=== PATIENT | male | born 1930 | race Caucasian/White ===

== ENCOUNTER 2017-12-31 21:19 | Inpatient (IN) | payer OTHER, MEDICARE ==
--- NOTE | 2017-12-31 22:17 | PDOC ---
History of Present Illness - General Chief Complaint: Injury Stated Complaint: FALL Time Seen by Provider: 12/31/17 21:29 History Source: Patient Exam Limitations: No Limitations - History of Present Illness Initial Comments: 12/31/17 22:17 87m with pmh of aortic valve replacement on clopidogrel in addition to arteriosclerotic heart disease, AL S/P CABG, PCI/stenting, angina pectoris, HTN/ HCVD, hypercholesterolemia, carotid stenosis (moderate in severity), history of vocal cord malignancy post intervention, CKD with mildly elevated creatinine, diabetic peripheral neuropathy, degenerative joint disease and chronic anemia presents to the ED after feeling of generalized weakness and fall with feeling too weak to get back up on his own. 12/31/17 22:17 Past History - Past Medical History Allergies/Adverse Reactions: Allergies Allergy/AdvReac Type Severity Reaction Status Date / Time shrimp Allergy Verified 12/31/17 21:44 walnut Allergy Verified 12/31/17 21:44 SHRHIMP AdvReac Rash Uncoded 12/31/17 21:44 WALNUTS AdvReac Hives Uncoded 12/31/17 21:44 Home Medications: Ambulatory Orders Amlodipine Besylate 5 mg PO DAILY 12/31/17 Aspirin [ASA -] 81 mg PO DAILY 12/31/17 Clopidogrel Bisulfate [Clopidogrel] 75 mg PO DAILY 12/31/17 Furosemide 20 mg PO BID 12/31/17 Glimepiride 1 mg PO BID 12/31/17 Linagliptin [Tradjenta] 5 mg PO DAILY 12/31/17 Losartan Potassium 100 mg PO DAILY 12/31/17 Metoprolol Tartrate 50 mg PO DAILY 12/31/17 [place]-3 Fatty Acids [[place]-3] 1,000 mg PO DAILY 12/31/17 Rosuvastatin Calcium [Crestor] 2.5 mg PO DAILY 12/31/17 Oseltamivir Phosphate [Tamiflu] 75 mg PO BID #10 capsule 01/01/18 Cardiac Disorders: Yes (BYPASS 2004) Diabetes: Yes HTN: Yes Hypercholesterolemia: Yes - Surgical History Cardiac Surgery: Yes (QUADRUPLE BYPASS) Cholecystectomy: Yes - Suicide/Smoking/Psychosocial Hx Smoking Status: Yes Smoking History: Never smoked Have you smoked in the past 12 months: No Number of Cigarettes Smoked Daily: 0 Information on smoking cessation initiated: No Hx Alcohol Use: No Drug/Substance Use Hx: No Substance Use Type: None Review of Systems - Review of Systems Able to Perform ROS?: Yes Is the patient limited Icelandic proficient: No Constitutional: Yes: Weakness HEENTM: No: Symptoms Reported Respiratory: No: Symptoms reported Cardiac (ROS): No: Symptoms Reported ABD/GI: No: Symptoms Reported : No: Symptoms Reported Musculoskeletal: No: Symptoms Reported Integumentary: No: Symptoms Reported Neurological: No: Symptoms reported All Other Systems: Reviewed and Negative *Physical Exam - Vital Signs Last Vital Signs Temp Pulse Resp BP Pulse Ox 99.2 F 81 14 118/70 96 12/31/17 21:45 12/31/17 21:45 12/31/17 21:45 12/31/17 21:45 12/31/17 21:45 - Physical Exam General Appearance: Yes: Nourished, Appropriately Dressed, Apparent Distress HEENT: positive: EOMI, MARTHA, Normal ENT Inspection Respiratory/Chest: positive: Lungs Clear, Normal Breath Sounds. negative: Chest Tender, Respiratory Distress Cardiovascular: positive: Regular Rhythm, Regular Rate, S1, S2 Gastrointestinal/Abdominal: positive: Normal Bowel Sounds, Flat, Soft. negative : Tender Extremity: positive: Normal Capillary Refill, Normal Inspection, Normal Range of Motion Integumentary: positive: Normal Color, Dry, Warm Neurologic: positive: Fully Oriented, Alert, Normal Mood/Affect, Normal Response ED Treatment Course - LABORATORY CBC & Chemistry Diagram: 12/31/17 22:43 12/31/17 22:43 - RADIOLOGY Radiology Studies Ordered: Category Date Time Status HEAD CT WITHOUT CONTRAST [CT] Stat CT Scan 12/31/17 21:47 Ordered CHEST X-RAY PORTABLE* [RAD] Stat Radiology 12/31/17 21:50 Ordered Medical Decision Making - Medical Decision Making 12/31/17 22:31 Will check for source of fever. UTI vs pneumonia vs flu vs metabolic Head ct pending. , negative EKG: RBBB unchanged from last. BnP elevated. Patient to be admitted for syncope and treated empirically for the Flu. *DC/Admit/Observation/Transfer Diagnosis at time of Disposition: Syncope, Weakness - Discharge Dispostion Admit: Yes - Prescriptions - Referrals - Patient Instructions - Post Discharge Activity
[2017-12-31 22:59] LABS: URINE APPEARANCE CLEAR; URINE BILIRUBIN NEGATIVE (NEGATIVE); URINE BLOOD NEGATIVE (NEGATIVE); URINE COLOR LTYELLOW; URINE GLUCOSE (UA) NEGATIVE (NEGATIVE); URINE KETONE NEGATIVE (NEGATIVE); URINE LEUK ESTERASE NEGATIVE (NEGATIVE); URINE NITRITE NEGATIVE (NEGATIVE); URINE UROBILINOGEN NEGATIVE mg/dL (0.2-1.0)
[2017-12-31 23:05] LABS: EPI CELLS RARE /HPF (FEW); URINE MUCUS RARE; URINE PROTEIN 2+ (NEGATIVE)
[2017-12-31 23:05] LABS: BASO % 0.4 % (0-2.0); EOS % 0.1 % (0-4.5); HEMATOCRIT 38.5 % (35.4-49); HEMOGLOBIN 12.9 GM/dL (11.7-16.9); LYMPH % 4.1 % (8-40); MCH 29.2 pg (25.7-33.7); MCHC 33.6 g/dl (32.0-35.9); MEAN PLT VOLUME 8.3 fl (7.5-11.1); MONO % 7.1 % (3.8-10.2); NEUT % 88.3 % (42.8-82.8); PLATELET COUNT 147 K/MM3 (134-434); RBC 4.43 M/mm3 (4.00-5.60); RDW 12.9 % (11.9-15.9); WHITE BLOOD COUNT 10.3 K/mm3 (4.0-10.0)
[2017-12-31] MEDS ORDERED: SODIUM CHLORIDE 1,000 ML IV STA (23:09)
[2017-12-31 23:12] LABS: INR 1.08 (0.82-1.09); PROTHROMBIN TIME (PATIENT) 12.2 SEC (9.98-11.88)
[2017-12-31 23:32] LABS: ALBUMIN 3.8 g/dl (3.4-5.0); ANION GAP 8 (8-16); BILIRUBIN,TOTAL 0.7 mg/dL (0.2-1.0); BLOOD UREA NITROGEN 28 mg/dL (7-18); CALCIUM 9.1 mg/dL (8.5-10.1); CHLORIDE 98 mmol/L (98-107); CO2 30 mmol/L (21-32); CREATININE 1.7 mg/dL (0.7-1.3); GLUCOSE,RANDOM 128 mg/dL (74-106); POTASSIUM 4.1 mmol/L (3.5-5.1); SGOT/AST 29 U/L (15-37); SGPT/ALT 26 U/L (12-78); SODIUM 136 mmol/L (136-145); TOT PROT 8.9 g/dl (6.4-8.2)
[2017-12-31 23:42] LABS: ALK PHOS 67 U/L (45-117)
[2017-12-31] MEDS ORDERED: ACETAMINOPHEN 1000 MG/100 ML VIAL (NON FORMULARY) IVPB ONE (23:49)
[2017-12-31] MEDS ORDERED: ACETAMINOPHEN INJECTION 100 ML IVPB ONE (23:49)
[2018-01-01] MEDS ORDERED: OSELTAMIVIR PHOSPHATE 75 MG CAPSULE PO ONE (01:17)
--- NOTE | 2018-01-01 01:20 | PDOC ---
Attending Attestation - Resident Resident Name: Gregory Shannon - ED Attending Attestation I have performed the following: I have examined & evaluated the patient, The case was reviewed & discussed with the resident, I agree w/resident's findings & plan - HPI HPI: 01/01/18 01:18 Pt comes with syncope which was unwitnessed at home. Pt leaned over to clean up cat's vomit and he ended up on the ground, - Physicial Exam PE: 01/01/18 01:19 Exam is normal; Pt is A+Ox3. Pt has a low grade fever. 01/01/18 01:19 - Medical Decision Making 01/01/18 01:20 Labs are normal. WBC slight elevation 01/01/18 02:17 Patient Name: NOY COPPOLA THIS IS A PRELIMINARY REPORT FROM [facility] DATE OF SERVICE: 2018-01-01 00:52:04 IMAGES: 151 EXAM: HEAD CT WITHOUT CONTRAST HISTORY: Trauma TECHNIQUE: CT Head with serial axial images extending from the vertex to the base of skull was performed without vascular contrast. FINDINGS: Brain parenchyma is normal in attenuation with no mass or hematoma. There is no midline shift. Arceo and white matter differentiation is normal. There is some lucency in the periventricular white matter Ventricles are mildly prominent. Sulci and extra-axial CSF spaces are mildly prominent. Intracranial vascular structures are normal in attenuation. There is no calvarial fracture. Paranasal sinuses are normally aerated. IMPRESSION: No intracranial mass or bleed Chronic appearing involutional changes of aging THIS DOCUMENT HAS BEEN ELECTRONICALLY SIGNED 01/01/18 03:09 Pt will be admitted as he has bilateral crackles at the lung bases, as he is weak and cannot ambulate and carry his weight and move about, as he has fever and as he had an unwitnessed syncope in his home.
[2018-01-01] MEDS ORDERED: OSELTAMIVIR PHOSPHATE 75 MG CAPSULE ONE (02:12)
[2018-01-01 02:24] LABS: N-TERMINAL BNP 1348.85 pg/ml (5-450)
[2018-01-01] MEDS ORDERED: IBUPROFEN 600 MG TABLET (FP) PO ONE ×2 (03:08→06:07)
--- NOTE | 2018-01-01 04:05 | HP ---
CHIEF COMPLAINT: fall PCP: Dr. Mejia HISTORY OF PRESENT ILLNESS: 87 year old male with a history of AV replacement recently, ME, HTN, HLD, carotid stenosis, CKD, DM, vocal chord malignancy, anemia, presents to the ED for a fall. He states that this morning around 11am, he got a fever he measured to be 102 with body aches. Later in the day he reports that his cat had non- bloody, non-bilious emesis which he had to clean up after. When he stood up after cleaning up his cat's vomit, patient states that he felt lightheaded and fell. He states that he may have hit his head but he doesn't really remember whether he hit it. Currently patient endorses fevers and chills, weakness. Denies shortness of breath, chest pain, nausea, vomiting, diarrhea, abdominal pain, headache, or light headedness. Denies cough or sputum production. Denies dysuria. ER course was notable for: (1) WBC 10.3 (2) Cre 1.7 (baseline) (3) Tmax 100.8 Recent Travel: none PAST MEDICAL HISTORY: AV replacement recently, ME, HTN, HLD, carotid stenosis, CKD, DM, vocal chord malignancy, anemia PAST SURGICAL HISTORY: av replacement Social History: Smoking: none Alcohol: none Drugs: none Family History: Allergies shrimp Allergy (Verified 12/31/17 21:44) walnut Allergy (Verified 12/31/17 21:44) SHRHIMP Adverse Reaction (Uncoded 12/31/17 21:44) Rash WALNUTS Adverse Reaction (Uncoded 12/31/17 21:44) Hives HOME MEDICATIONS: Home Medications Medication Instructions Recorded Amlodipine Besylate 5 mg PO DAILY 12/31/17 Aspirin [ASA -] 81 mg PO DAILY 12/31/17 Clopidogrel Bisulfate [Clopidogrel] 75 mg PO DAILY 12/31/17 Furosemide 20 mg PO BID 12/31/17 Glimepiride 1 mg PO BID 12/31/17 Linagliptin [Tradjenta] 5 mg PO DAILY 12/31/17 Losartan Potassium 100 mg PO DAILY 12/31/17 Metoprolol Tartrate 50 mg PO DAILY 12/31/17 [place]-3 Fatty Acids [[place]-3] 1,000 mg PO DAILY 12/31/17 Rosuvastatin Calcium [Crestor] 2.5 mg PO DAILY 12/31/17 Oseltamivir Phosphate [Tamiflu] 75 mg PO BID #10 capsule 01/01/18 REVIEW OF SYSTEMS CONSTITUTIONAL: fever, chills, generalized weakness Absent: diaphoresis, , malaise, loss of appetite, weight change HEENT: Absent: rhinorrhea, nasal congestion, throat pain, throat swelling, difficulty swallowing, mouth swelling, ear pain, eye pain, visual changes CARDIOVASCULAR: syncope, Absent: chest pain, palpitations, irregular heart rate, lightheadedness, peripheral edema RESPIRATORY: Absent: cough, shortness of breath, dyspnea with exertion, orthopnea, wheezing, stridor, hemoptysis GASTROINTESTINAL: Absent: abdominal pain, abdominal distension, nausea, vomiting, diarrhea, constipation, melena, hematochezia GENITOURINARY: Absent: dysuria, frequency, urgency, hesitancy, hematuria, flank pain, genital pain MUSCULOSKELETAL: Absent: myalgia, arthralgia, joint swelling, back pain, neck pain SKIN: Absent: rash, itching, pallor HEMATOLOGIC/IMMUNOLOGIC: Absent: easy bleeding, easy bruising, lymphadenopathy, frequent infections ENDOCRINE: Absent: unexplained weight gain, unexplained weight loss, heat intolerance, cold intolerance NEUROLOGIC: Absent: headache, focal weakness or paresthesias, dizziness, unsteady gait, seizure, mental status changes, bladder or bowel incontinence PSYCHIATRIC: Absent: anxiety, depression, suicidal or homicidal ideation, hallucinations. PHYSICAL EXAMINATION Vital Signs - 24 hr 12/31/17 12/31/17 01/01/18 21:45 23:45 02:17 Temperature 99.2 F 100.8 F H 98.2 F Pulse Rate 81 Respiratory 14 Rate Blood Pressure 118/70 O2 Sat by Pulse 96 Oximetry (%) GENERAL: Awake, alert, and fully oriented, in no acute distress. patient is visibly shivering and covering himself with blankets. HEAD: Normal with no signs of trauma. EYES: Pupils equal, round and reactive to light, extraocular movements intact, sclera anicteric, conjunctiva clear. No lid lag. EARS, NOSE, THROAT: Ears normal, nares patent, oropharynx clear without exudates. Moist mucous membranes. NECK: Normal range of motion, supple without lymphadenopathy, JVD, or masses. LUNGS: Breath sounds equal, clear to auscultation bilaterally. bilateral crackles appreciated on exam at the lung bases HEART: Regular rate and rhythm, normal S1 and S2 without murmur, rub or gallop. ABDOMEN: Soft, nontender, not distended, normoactive bowel sounds, no guarding, no rebound, no masses. No hepatomegaly or splenomegaly. MUSCULOSKELETAL: Normal range of motion at all joints. No bony deformities or tenderness. No CVA tenderness. UPPER EXTREMITIES: 2+ pulses, warm, well-perfused. No cyanosis. No clubbing. No peripheral edema. LOWER EXTREMITIES: 2+ pulses, warm, well-perfused. No calf tenderness. No peripheral edema. B/L lower extremity discoloration noted on exam, more like chronic venous stasis changes NEUROLOGICAL: Cranial nerves II-XII intact. Normal speech. Normal gait. PSYCHIATRIC: Cooperative. Good eye contact. Appropriate mood and affect. SKIN: Warm, dry, normal turgor, no rashes or lesions noted, normal capillary refill. Laboratory Results - last 24 hr 12/31/17 12/31/17 12/31/17 22:43 22:43 22:43 WBC 10.3 H D RBC 4.43 Hgb 12.9 Hct 38.5 MCV 87.0 MCH 29.2 MCHC 33.6 RDW 12.9 Plt Count 147 MPV 8.3 Neutrophils % 88.3 H D Lymphocytes % 4.1 L D Monocytes % 7.1 Eosinophils % 0.1 D Basophils % 0.4 PT with INR 12.20 H INR 1.08 PTT (Actin FS) 33.0 Sodium 136 Potassium 4.1 Chloride 98 Carbon Dioxide 30 Anion Gap 8 BUN 28 H Creatinine 1.7 H Creat Clearance w eGFR 38.14 Random Glucose 128 H Lactic Acid Calcium 9.1 Total Bilirubin 0.7 D AST 29 D ALT 26 Alkaline Phosphatase 67 Creatine Kinase 175 Creatine Kinase Index 0.5 CK-MB (CK-2) < 1.000 Troponin I 0.02 D B-Natriuretic Peptide Total Protein 8.9 H Albumin 3.8 Urine Color Urine Appearance Urine pH Ur Specific [place] Urine Protein Urine Glucose (UA) Urine Ketones Urine Blood Urine Nitrite Urine Bilirubin Urine Urobilinogen Ur Leukocyte Esterase Urine WBC (Auto) Urine RBC (Auto) Ur Epithelial Cells Urine Mucus 12/31/17 12/31/17 12/31/17 22:43 22:43 22:55 WBC RBC Hgb Hct MCV MCH MCHC RDW Plt Count MPV Neutrophils % Lymphocytes % Monocytes % Eosinophils % Basophils % PT with INR INR PTT (Actin FS) Sodium Potassium Chloride Carbon Dioxide Anion Gap BUN Creatinine Creat Clearance w eGFR Random Glucose Lactic Acid Calcium Total Bilirubin AST ALT Alkaline Phosphatase Creatine Kinase Cancelled Creatine Kinase Index CK-MB (CK-2) Troponin I Cancelled B-Natriuretic Peptide Total Protein Albumin Urine Color Ltyellow Urine Appearance Clear Urine pH 6.0 Ur Specific [place] 1.012 Urine Protein 2+ H Urine Glucose (UA) Negative Urine Ketones Negative Urine Blood Negative Urine Nitrite Negative Urine Bilirubin Negative Urine Urobilinogen Negative Ur Leukocyte Esterase Negative Urine WBC (Auto) <1 Urine RBC (Auto) <1 Ur Epithelial Cells Rare Urine Mucus Rare 12/31/17 01/01/18 01/01/18 23:00 01:40 01:41 WBC RBC Hgb Hct MCV MCH MCHC RDW Plt Count MPV Neutrophils % Lymphocytes % Monocytes % Eosinophils % Basophils % PT with INR INR PTT (Actin FS) Sodium Potassium Chloride Carbon Dioxide Anion Gap BUN Creatinine Creat Clearance w eGFR Random Glucose Lactic Acid 1.7 Calcium Total Bilirubin AST ALT Alkaline Phosphatase Creatine Kinase 171 Creatine Kinase Index 0.7 CK-MB (CK-2) 1.260 Troponin I 0.02 B-Natriuretic Peptide Cancelled 1348.85 H Total Protein Albumin Urine Color Urine Appearance Urine pH Ur Specific [place] Urine Protein Urine Glucose (UA) Urine Ketones Urine Blood Urine Nitrite Urine Bilirubin Urine Urobilinogen Ur Leukocyte Esterase Urine WBC (Auto) Urine RBC (Auto) Ur Epithelial Cells Urine Mucus Home Medication List Medication Instructions Recorded Confirmed Type Amlodipine Besylate 5 mg PO DAILY 12/31/17 12/31/17 History Aspirin [ASA -] 81 mg PO DAILY 12/31/17 12/31/17 History Clopidogrel Bisulfate [Clopidogrel] 75 mg PO DAILY 12/31/17 12/31/17 History Furosemide 20 mg PO BID 12/31/17 12/31/17 History Glimepiride 1 mg PO BID 12/31/17 12/31/17 History Linagliptin [Tradjenta] 5 mg PO DAILY 12/31/17 12/31/17 History Losartan Potassium 100 mg PO DAILY 12/31/17 12/31/17 History Metoprolol Tartrate 50 mg PO DAILY 12/31/17 12/31/17 History [place]-3 Fatty Acids [[place]-3] 1,000 mg PO DAILY 12/31/17 12/31/17 History Rosuvastatin Calcium [Crestor] 2.5 mg PO DAILY 12/31/17 12/31/17 History Active Medications Generic Name Dose Route Start Last Admin Trade Name Heather PRN Reason Stop Dose Admin Amlodipine Besylate 5 mg 01/01/18 10:00 Norvasc - PO DAILY [facility] Aspirin 81 mg 01/01/18 10:00 Asa - PO DAILY [facility] Azithromycin 500 mg 01/01/18 10:00 Zithromax - PO DAILY [facility] Clopidogrel Bisulfate 75 mg 01/01/18 10:00 Plavix - PO DAILY [facility] Furosemide 20 mg 01/01/18 10:00 Lasix - PO BID [facility] Heparin Sodium (Porcine) 5,000 unit 01/01/18 05:15 Heparin - SQ Q8H-IV [facility] Ceftriaxone Sodium 1 gm/ 50 mls @ 100 mls/hr 01/01/18 10:00 Dextrose IVPB DAILY [facility] Insulin Aspart 0 vial 01/01/18 07:00 Novolog Vial Sliding Scale - SQ ACHS [facility] Protocol Metoprolol Tartrate 50 mg 01/01/18 10:00 Lopressor - PO DAILY [facility] Non-Formulary Medication 100 mg 01/01/18 10:00 Losartan Potassium [Losartan Potassium] PO DAILY [facility] Oseltamivir Phosphate 75 mg 01/01/18 10:00 Tamiflu - PO 01/06/18 09:59 BID [facility] Rosuvastatin Calcium 2.5 mg 01/01/18 10:00 Crestor - PO DAILY [facility] ASSESSMENT/PLAN: 87 year old male with a history of AV replacement recently, ME, HTN, HLD, carotid stenosis, CKD, DM, vocal chord malignancy, anemia, is admitted to the hospital s/p fall with possible syncopal episode and fevers/chills with crackles on exam suggestive of pneumonia and influenza #Respiratory Infection: likely 2/2 infuenza vs pneumonia -RV panel to r/o flu -blood cultures -urine cultures -urine legionella -tamiflu given -ceftriaxone 1g QD -zithromax 500 QD #Syncope: unclear if truly syncopized -telemetry -lipid panel -echo -carotid duplex - consult appreciated -Dr. Mejia consult appreciated #ME: stable -continue ASA, plavix #HTN: stable -amlodipine, losartan, lasix, lopressor -monitor BP in AM #DM: stable -bgms -ISS #CKD: patient is at baseline -can give lasix #FEN -No standing fluids, encourage PO intake -electrolytes within normal limits, Cre at baseline -diabetic diet #Prophylaxis -heparin 5000 subq TID #Disposition -admit to telemetry for syncopy workup Visit type - Emergency Visit Emergency Visit: Yes ED Registration Date: 01/01/18 Care time: The patient presented to the Emergency Department on the above date and was hospitalized for further evaluation of their emergent condition. - New Patient This patient is new to me today: Yes Date on this admission: 01/01/18 - Critical Care Critical Care patient: No
[2018-01-01] MEDS ORDERED: HEPARIN NA (PORCINE) 5,000 UNITS/ML 1ML VIAL SQ SCH (05:15)
--- NOTE | 2018-01-01 05:52 | PN ---
Teaching Attending Note Name of Resident: Westley Monahan ATTENDING PHYSICIAN STATEMENT I saw and evaluated the patient. Chart, data, imaging. I reviewed the resident's note and discussed the case with the resident. I agree with the resident's findings and plan as documented. SUBJECTIVE: 87m with AVR on clopidogrel, CAD S/P CABG, PCI/stenting, angina pectoris, HTN, DLP, carotid stenosis, vocal cord malignancy post intervention, CKD, c/o chills fevers, muscle aches for about one day. He mentioned that his daughter in law was recently sick. No mentioned recent travels. Pt also with questionable syncope episode on 12/31. Unwitnessed. He denied any trauma to head. OBJECTIVE: Last Vital Signs Temp Pulse Resp BP Pulse Ox 98.2 F 81 14 118/70 96 01/01/18 02:17 12/31/17 21:45 12/31/17 21:45 12/31/17 21:45 12/31/17 21:45 General- nad, aaox3 heent - at, nc neck- supple chest- bibasilar crackles appreciated on lung auscultation abdomen - soft, nt ext- chronic venous stasis Abnormal Lab Results 12/31/17 12/31/17 12/31/17 22:43 22:43 22:43 WBC 10.3 H D Neutrophils % 88.3 H D Lymphocytes % 4.1 L D PT with INR 12.20 H BUN 28 H Creatinine 1.7 H Random Glucose 128 H B-Natriuretic Peptide Total Protein 8.9 H Urine Protein 12/31/17 01/01/18 22:55 01:41 WBC Neutrophils % Lymphocytes % PT with INR BUN Creatinine Random Glucose B-Natriuretic Peptide 1348.85 H Total Protein Urine Protein 2+ H CXR -showed bibasilar infiltrates CT of head-no acute bleeds or lesions EKG- old right bundle branch block ASSESSMENT AND PLAN: #Probable upper viral respiratory infection with superimposed pneumonia as evidence by fever and bibasilar infiltrates on CXR. Should r/o influenza. -Respiratory multiplex PCR -blood cultures x2 -sputum culture -legionella urine ag -ceftriaxone 1g IV q24hrs -azithromycin 500mg PO daily -Tamiflu 30mg PO bid (adjusted for CKD) #Syncope episode -uncertain. Head CT wnl. EKG with no acute changes -admit to telemetry -TSH -transthoracic echo -carotid duplex studies b/l #DVT ppx -heparin sc
[2018-01-01] MEDS ORDERED: HEPARIN NA (PORCINE) 5,000 UNITS/ML 1ML VIAL ONE (06:05)
[2018-01-01] MEDS ORDERED: HEMOQUE TEST 1 EACH EACH ONE (07:47)
[2018-01-01] MEDS: INSULIN SLIDING SCALE (NOVOLOG) 1 VIAL SQ SCH ×4 (07:53→23:17)
[2018-01-01] MEDS ORDERED: INSULIN REGULAR HUMAN 100 UNITS/ML *VIAL ONE ×2 (08:07→12:06)
[2018-01-01 08:56] LABS: BASO % 0.4 % (0-2.0); HEMATOCRIT 35.9 % (35.4-49); HEMOGLOBIN 11.9 GM/dL (11.7-16.9); LYMPH % 2.9 % (8-40); MCH 28.7 pg (25.7-33.7); MCHC 33.2 g/dl (32.0-35.9); MEAN CELL VOLUME 86.5 fl (80-96); MEAN PLT VOLUME 8.4 fl (7.5-11.1); MONO % 7.1 % (3.8-10.2); NEUT % 89.6 % (42.8-82.8); PLATELET COUNT 138 K/MM3 (134-434); RBC 4.15 M/mm3 (4.00-5.60); RDW 13.1 % (11.9-15.9); WHITE BLOOD COUNT 10.2 K/mm3 (4.0-10.0)
[2018-01-01 09:13] LABS: ALBUMIN 3.5 g/dl (3.4-5.0); ANION GAP 9 (8-16); BLOOD UREA NITROGEN 26 mg/dL (7-18); CALCIUM 8.1 mg/dL (8.5-10.1); CHLORIDE 100 mmol/L (98-107); CO2 27 mmol/L (21-32); GLUCOSE,RANDOM 160 mg/dL (74-106); MAGNESIUM 2.2 mg/dL (1.8-2.4); POTASSIUM 4.1 mmol/L (3.5-5.1); SODIUM 136 mmol/L (136-145)
[2018-01-01 09:18] LABS: ALK PHOS 59 U/L (45-117); BILIRUBIN,TOTAL 0.6 mg/dL (0.2-1.0); CHOLESTEROL 100 mg/dL (50-200); CREATININE 1.7 mg/dL (0.7-1.3); HDL CHOLESTEROL 36 mg/dL (40-60); LDL CHOLESTEROL (ONLY SJRH) 52 mg/dL (5-100); PHOSPHOROUS 3.1 mg/dL (2.5-4.9); SGOT/AST 28 U/L (15-37); SGPT/ALT 25 U/L (12-78); TOT PROT 7.5 g/dl (6.4-8.2); TRIGLYCERIDES 111 mg/dL (35-160)
[2018-01-01] MEDS ORDERED: CEFTRIAXONE 1 GM/50 ML BAG ONE (09:37)
[2018-01-01] MEDS: LOSARTAN POTASSIUM 50 MG TABLET (FP) PO SCH (09:51)
[2018-01-01] MEDS: ASPIRIN 81 MG CHEWABLE TABLETS PO SCH (09:51)
[2018-01-01] MEDS: CEFTRIAXONE 1 G/50 ML PREMIX 50 ML IVPB SCH (09:51)
[2018-01-01] MEDS: ROSUVASTATIN CA 5 MG TABLET (FP) PO SCH (09:52)
[2018-01-01] MEDS: amLODIPine BESYLATE 5 MG TABLET (FP) PO SCH (09:52)
[2018-01-01] MEDS: AZITHROMYCIN 250 MG TABLET PO SCH (09:52)
[2018-01-01] MEDS: METOPROLOL TARTRATE 50 MG TABLET (FP) PO SCH (09:52)
[2018-01-01] MEDS: CLOPIDOGREL BISULFATE 75 MG TABLET (FP) PO SCH (09:52)
[2018-01-01] MEDS ORDERED: OSELTAMIVIR PHOSPHATE 75 MG CAPSULE PO SCH (10:00)
--- NOTE | 2018-01-01 10:32 | CON.ID ---
Consult - History of Present Illness History of Present Illness: 87 y.o male with PMH of CAD s/p CABG, PCI s/p stent, Aortic valve replacement, ? carotid stenosis, HTN, CKD presents with c/o fever (102F) at home and chills that began 2 days ago. Pt states he has a cough but denies rhinorrhea, sore throat, chest pain. His daughter had some sort of viral infection. He reports history of lower back pain that began 2 weeks ago and LLE pain x 1 wk due to "sciatica". He states his knees gave, he fell to the ground and felt dizzy but denies LOC or trauma to his head. In the ER noted to have temperature of 100.8 and tachycardia but no respiratory distress. - History Source History Provided By: Patient Limitations to Obtaining History: No Limitations - Past Medical History Cardio/Vascular: Yes: Aortic Stenosis, CAD, CHF, HTN, Hyperlipdemia, [place], Murmur Renal/: Yes: Renal Inusuff Musculoskeletal: Yes: Other (low back pain x 2 wks) Endocrine: Yes: Diabetes Mellitus - Past Surgical History Past Surgical History: Yes: CABG, Stent, Valve Replacement (aortic) - Alcohol/Substance Use Hx Alcohol Use: No - Smoking History Smoking history: Never smoked Have you smoked in the past 12 months: No Aproximately how many cigarettes per day: 0 Home Medications - Allergies Allergies/Adverse Reactions: Allergies Allergy/AdvReac Type Severity Reaction Status Date / Time shrimp Allergy Verified 12/31/17 21:44 walnut Allergy Verified 12/31/17 21:44 SHRHIMP AdvReac Rash Uncoded 12/31/17 21:44 WALNUTS AdvReac Hives Uncoded 12/31/17 21:44 - Home Medications Home Medications: Ambulatory Orders Amlodipine Besylate 5 mg PO DAILY 12/31/17 Aspirin [ASA -] 81 mg PO DAILY 12/31/17 Clopidogrel Bisulfate [Clopidogrel] 75 mg PO DAILY 12/31/17 Furosemide 20 mg PO BID 12/31/17 Glimepiride 1 mg PO BID 12/31/17 Linagliptin [Tradjenta] 5 mg PO DAILY 12/31/17 Losartan Potassium 100 mg PO DAILY 12/31/17 Metoprolol Tartrate 50 mg PO DAILY 12/31/17 [place]-3 Fatty Acids [[place]-3] 1,000 mg PO DAILY 12/31/17 Rosuvastatin Calcium [Crestor] 2.5 mg PO DAILY 12/31/17 Oseltamivir Phosphate [Tamiflu] 75 mg PO BID #10 capsule 01/01/18 Review of Systems - Review of Systems Constitutional: reports: Chills, Fever Eyes: reports: No Symptoms HENT: reports: No Symptoms Neck: reports: No Symptoms Cardiovascular: reports: No Symptoms Respiratory: reports: Cough (non productive) Gastrointestinal: reports: No Symptoms Genitourinary: reports: No Symptoms Musculoskeletal: reports: Back Pain (low back pain x 2 wks) Integumentary: reports: No Symptoms Neurological: reports: No Symptoms Endocrine: reports: No Symptoms Hematology/Lymphatic: reports: No Symptoms Psychiatric: reports: No Symptoms Physical Exam Vital Signs: Vital Signs Temperature 98.7 F 01/01/18 09:52 Pulse Rate 103 H 01/01/18 09:52 Respiratory Rate 16 01/01/18 09:52 Blood Pressure 128/74 01/01/18 09:52 O2 Sat by Pulse Oximetry (%) 97 01/01/18 09:52 Constitutional: Yes: No Distress, Calm Eyes: Yes: WNL HENT: Yes: Atraumatic, Normocephalic Neck: Yes: Supple Cardiovascular: Yes: Regular Rate and Rhythm, Murmur Respiratory: Yes: Other (bibasilar crackles) Gastrointestinal: Yes: Normal Bowel Sounds, Soft ...Rectal Exam: Yes: Deferred Renal/: Yes: WNL Musculoskeletal: Yes: WNL Extremities: Yes: WNL Integumentary: Yes: Other (b/l LE chronic stasis dermatitis - no erythema/warmth /discharge/ulcers) Neurological: Yes: Alert, Oriented Labs: CBC, BMP 01/01/18 08:11 01/01/18 08:11 Microbiology 12/31/17 23:00 Blood - Peripheral Venous Blood Culture - Preliminary Pending Organism + GPC Imaging - Results X-ray: Report Reviewed Problem List - Problems (1) H/O aortic valve replacement Code(s): Z95.2 - PRESENCE OF PROSTHETIC HEART VALVE (2) Aortic stenosis Code(s): I35.0 - NONRHEUMATIC AORTIC (VALVE) STENOSIS Qualifiers: Cardiac valve disease etiology: etiology unspecified Qualified Code(s): I35.0 - Nonrheumatic aortic (valve) stenosis (3) CAD (coronary artery disease) Code(s): I25.10 - ATHSCL HEART DISEASE OF [place] CORONARY ARTERY W/O ANG PCTRS Qualifiers: Coronary Disease-Associated Artery/Lesion type: [place] artery [place] vs. transplanted heart: [place] heart Associated angina: without angina Qualified Code(s): I25.10 - Atherosclerotic heart disease of [place] coronary artery without angina pectoris (4) CKD (chronic kidney disease) Code(s): N18.9 - CHRONIC KIDNEY DISEASE, UNSPECIFIED Qualifiers: Chronic kidney disease stage: stage 2 (mild) Qualified Code(s): N18.2 - Chronic kidney disease, stage 2 (mild) (5) HTN (hypertension) Code(s): I10 - ESSENTIAL (PRIMARY) HYPERTENSION Qualifiers: Hypertension type: essential hypertension (6) Hx of CABG Code(s): Z95.1 - PRESENCE OF AORTOCORONARY BYPASS GRAFT Assessment/Plan 87 y.o. male with PMH of CAD s/p CABG, PCI s/p stent, aortic valve replacement, CKD, HTN presenting with fever/chills and cough, episode of dizziness without LOC Gram + Bacteremia Possible Influenza PNA -- continue Ceftriaxone/zithromax/ Tamiflu -- droplet precautions -- f/u urinary Legionalla/strep ag -- Vancomycin 1 gram IV x 1 dose for now -- f/u Blood culture isolate -- repeat blood culture monitor vitals, renal function
[2018-01-01] MEDS: OSELTAMIVIR PHOSPHATE 30 MG CAPSULE PO SCH ×2 (10:48→23:18)
[2018-01-01] MEDS ORDERED: VANCOMYCIN 1,000 MG in DEXTROSE 5%-WATER - 250 ML IVPB ONE (11:00)
--- NOTE | 2018-01-01 12:13 | EKG ---
Test Reason : Blood Pressure : / mmHG Vent. Rate : 093 BPM Atrial Rate : 093 BPM P-R Int : 222 ms QRS Dur : 148 ms QT Int : 408 ms P-R-T Axes : 040 057 014 degrees QTc Int : 507 ms SINUS RHYTHM WITH 1ST DEGREE A-V BLOCK RIGHT BUNDLE BRANCH BLOCK ABNORMAL ECG WHEN COMPARED WITH ECG OF 02-MAR-2016 13:24, T WAVE INVERSION NOW EVIDENT IN ANTERIOR LEADS NONSPECIFIC T WAVE ABNORMALITY NO LONGER EVIDENT IN LATERAL LEADS Confirmed by JAMES FLORES MD ([id number]) on 01/01/2018 12:12:43 PM Referred By: Confirmed By:JAMES FLORES MD
--- NOTE | 2018-01-01 14:51 | CON.CARD ---
Consult Consult Specialty:: Cardiology Referred by:: Hospitalist Reason for Consultation:: Cardiac evaluation - History of Present Illness Chief Complaint: Possible syncope vs near syncope History of Present Illness: Patient is an 87 year old male well known to our service (sees Dr. Karmen Gates) with underlying history of aortic valve stenosis s/p TAVR, history of CAD post CABG, PCI/stent, angina pectoris, hypertension/HCVD, hypercholesterolemia, carotid stenosis, history of vocal cord malignancy post intervension, CKD, diabetic peripheral neropathy, degenerative joint disease and chronic anemia. He presents this time after possible near syncope after he bent over to clean up what his cat had vomited. He also had a fever of 102. He denies chest pain, shortness of breath or palpitations. He denies paroxysmal nocturnal dyspnea or orthopnea. He denies chills. He denies headache or lightheadedness at this time. He felt dizzy as he was cleaning up and fell to the floor. - History Source History Provided By: Patient, Family Member Limitations to Obtaining History: No Limitations - Past Medical History Cardio/Vascular: Yes: Aortic Stenosis (TAVR), CAD (CABG), CHF, HTN, Hyperlipdemia, [place], Murmur Renal/: Yes: Renal Inusuff Heme/Onc: Yes: Anemia Musculoskeletal: Yes: Other (low back pain x 2 wks) Endocrine: Yes: Diabetes Mellitus - Past Surgical History Past Surgical History: Yes: CABG, Stent, Valve Replacement (TAVR) - Alcohol/Substance Use Hx Alcohol Use: No - Smoking History Smoking history: Former smoker Have you smoked in the past 12 months: No Aproximately how many cigarettes per day: 0 Home Medications - Allergies Allergies/Adverse Reactions: Allergies Allergy/AdvReac Type Severity Reaction Status Date / Time shrimp Allergy Verified 12/31/17 21:44 walnut Allergy Verified 12/31/17 21:44 SHRHIMP AdvReac Rash Uncoded 12/31/17 21:44 WALNUTS AdvReac Hives Uncoded 12/31/17 21:44 - Home Medications Home Medications: Ambulatory Orders Amlodipine Besylate 5 mg PO DAILY 12/31/17 Aspirin [ASA -] 81 mg PO DAILY 12/31/17 Clopidogrel Bisulfate [Clopidogrel] 75 mg PO DAILY 12/31/17 Furosemide 20 mg PO BID 12/31/17 Glimepiride 1 mg PO BID 12/31/17 Linagliptin [Tradjenta] 5 mg PO DAILY 12/31/17 Losartan Potassium 100 mg PO DAILY 12/31/17 Metoprolol Tartrate 50 mg PO DAILY 12/31/17 [place]-3 Fatty Acids [[place]-3] 1,000 mg PO DAILY 12/31/17 Rosuvastatin Calcium [Crestor] 2.5 mg PO DAILY 12/31/17 Oseltamivir Phosphate [Tamiflu] 75 mg PO BID #10 capsule 01/01/18 Review of Systems - Review of Systems Constitutional: reports: Fever. denies: Chills Cardiovascular: denies: Chest Pain, Palpitations, Shortness of Breath Respiratory: denies: Cough, Hemoptysis, Orthopnea, PND, SOB, SOB on Exertion Genitourinary: denies: Dysuria, Hematuria Neurological: reports: Dizziness, Syncope. denies: Confusion, Headache, Seizure , Unsteady Gait, Weakness Vital Signs: Vital Signs Temperature 98.7 F 01/01/18 09:52 Pulse Rate 103 H 01/01/18 09:52 Respiratory Rate 16 01/01/18 09:52 Blood Pressure 128/74 01/01/18 09:52 O2 Sat by Pulse Oximetry (%) 97 01/01/18 13:25 Eyes: Yes: PERRL Neck: Yes: Supple Respiratory: Yes: Diminished Gastrointestinal: Yes: Normal Bowel Sounds, Soft. No: Tenderness Cardiovascular: Yes: Regular Rate and Rhythm JVD: No Carotid Bruit: No PMI: Non-Displaced Heart Sounds: Yes: S1, S2. No: Gallop Murmur: Yes: Systolic Murmur, Grade 1 Edema: No - Other Data Labs, Other Data: CBC, BMP 01/01/18 08:11 01/01/18 08:11 INR, PTT INR 1.08 (0.82-1.09) 12/31/17 22:43 Troponin, BNP 12/31/17 12/31/17 01/01/18 22:43 22:43 01:40 Troponin I 0.02 D Cancelled B-Natriuretic Peptide Cancelled 01/01/18 01/01/18 01/01/18 01:41 08:11 09:20 Troponin I 0.02 0.05 D Cancelled B-Natriuretic Peptide 1348.85 H Sinus rhythm with RBBB Echo: Pending Imaging - Results Chest X-ray: Report Reviewed (Large heart) EKG: Report Reviewed Problem List - Problems (1) S/P TAVR (transcatheter aortic valve replacement) Code(s): Z95.2 - PRESENCE OF PROSTHETIC HEART VALVE (2) Syncope Code(s): R55 - SYNCOPE AND COLLAPSE Qualifiers: Syncope type: unspecified Qualified Code(s): R55 - Syncope and collapse (3) Aortic stenosis Code(s): I35.0 - NONRHEUMATIC AORTIC (VALVE) STENOSIS Qualifiers: Cardiac valve disease etiology: nonrheumatic Qualified Code(s): I35.0 - Nonrheumatic aortic (valve) stenosis (4) CAD (coronary artery disease) Code(s): I25.10 - ATHSCL HEART DISEASE OF [place] CORONARY ARTERY W/O ANG PCTRS Qualifiers: Coronary Disease-Associated Artery/Lesion type: [place] artery [place] vs. transplanted heart: [place] heart Associated angina: without angina Qualified Code(s): I25.10 - Atherosclerotic heart disease of [place] coronary artery without angina pectoris (5) CKD (chronic kidney disease) Code(s): N18.9 - CHRONIC KIDNEY DISEASE, UNSPECIFIED Qualifiers: Chronic kidney disease stage: stage 2 (mild) Qualified Code(s): N18.2 - Chronic kidney disease, stage 2 (mild) (6) Carotid artery disease Code(s): I77.9 - DISORDER OF ARTERIES AND ARTERIOLES, UNSPECIFIED (7) Diabetes mellitus Code(s): E11.9 - TYPE 2 DIABETES MELLITUS WITHOUT COMPLICATIONS Qualifiers: Diabetes mellitus type: type 2 Diabetes mellitus complication status: without complication Qualified Code(s): E11.9 - Type 2 diabetes mellitus without complications (8) HTN (hypertension) Code(s): I10 - ESSENTIAL (PRIMARY) HYPERTENSION Qualifiers: Hypertension type: essential hypertension (9) History of percutaneous coronary intervention Code(s): Z98.89 - OTHER SPECIFIED POSTPROCEDURAL STATES * DO NOT USE * (10) Hx of CABG Code(s): Z95.1 - PRESENCE OF AORTOCORONARY BYPASS GRAFT (11) Hypercholesterolemia Code(s): E78.0 - PURE HYPERCHOLESTEROLEMIA * DO NOT USE * Assessment/Plan 1. Possible near syncope - vasovagal 2. Possible Influenza 3. Post TAVR for aortic stenosis 4. CAD s/p CABG, PCI/stent, angina pectoris 5. Hypertension/hypertensive cardiovascular disease 6. Hypercholesterolemia 7. Diabetes mellitus and diabetic neuropathy 8. History of vocal cord malignancy PLAN: 1. Continue telemetry monitoring 2. Continue Metoprolol, Losartan and Amlodipine 3. Continue ASA and Plavix 4. Continue Furosemide 5. Continue Crestor 6. Empiric antibiotic coverage and Tamiflu 7. Transthoracic echocardiography to assess LV/RV and prosthetic valve Further plans are to follow Gallo Epps MD
[2018-01-01] MEDS: FUROSEMIDE 20 MG TABLET (FP) PO SCH (14:52)
[2018-01-01] MEDS: HEPARIN NA (PORCINE) 5,000 UNITS/ML 1ML VIAL SQ SCH ×2 (14:52→23:13)
[2018-01-01] MEDS ORDERED: ACETAMINOPHEN 1000 MG/100 ML VIAL (NON FORMULARY) IVPB PRN (15:10)
--- NOTE | 2018-01-01 20:38 | HOSP ---
Subjective - Review of Symptoms Events since last encounter: Patient has been seen and examined. Comfortable with no acute distress, feeling better. No shortness of breath. Vital Signs Temperature 102.2 F H 01/01/18 14:35 Pulse Rate 88 01/01/18 14:35 Respiratory Rate 22 01/01/18 14:35 Blood Pressure 164/67 01/01/18 14:35 O2 Sat by Pulse Oximetry (%) 97 01/01/18 13:25 CBCD WBC 10.2 K/mm3 (4.0-10.0) H 01/01/18 08:11 RBC 4.15 M/mm3 (4.00-5.60) 01/01/18 08:11 Hgb 11.9 GM/dL (11.7-16.9) 01/01/18 08:11 Hct 35.9 % (35.4-49) 01/01/18 08:11 MCV 86.5 fl (80-96) 01/01/18 08:11 MCHC 33.2 g/dl (32.0-35.9) 01/01/18 08:11 RDW 13.1 % (11.9-15.9) 01/01/18 08:11 Plt Count 138 K/MM3 (134-434) 01/01/18 08:11 MPV 8.4 fl (7.5-11.1) 01/01/18 08:11 CMP Sodium 136 mmol/L (136-145) 01/01/18 08:11 Potassium 4.1 mmol/L (3.5-5.1) 01/01/18 08:11 Chloride 100 mmol/L (98-107) 01/01/18 08:11 Carbon Dioxide 27 mmol/L (21-32) 01/01/18 08:11 Anion Gap 9 (8-16) 01/01/18 08:11 BUN 26 mg/dL (7-18) H 01/01/18 08:11 Creatinine 1.7 mg/dL (0.7-1.3) H 01/01/18 08:11 Creat Clearance w eGFR 38.14 (>60) 01/01/18 08:11 Random Glucose 160 mg/dL (74-106) H D 01/01/18 08:11 Calcium 8.1 mg/dL (8.5-10.1) L 01/01/18 08:11 Total Bilirubin 0.6 mg/dL (0.2-1.0) 01/01/18 08:11 AST 28 U/L (15-37) 01/01/18 08:11 ALT 25 U/L (12-78) 01/01/18 08:11 Alkaline Phosphatase 59 U/L (45-117) 01/01/18 08:11 Total Protein 7.5 g/dl (6.4-8.2) 01/01/18 08:11 Albumin 3.5 g/dl (3.4-5.0) 01/01/18 08:11 CARDIAC ENZYMES Creatine Kinase 293 IU/L (39-308) 01/01/18 08:11 Troponin I 0.05 ng/ml (0.00-0.05) D 01/01/18 08:11 Current Medications Generic Name Dose Route Start Last Admin Trade Name Freq PRN Reason Stop Dose Admin Acetaminophen 1,000 mg 01/01/18 15:10 01/01/18 16:06 Ofirmev Injection - IVPB 1,000 mg Q8H PRN Administration FEVER Amlodipine Besylate 5 mg 01/01/18 10:00 01/01/18 09:52 Norvasc - PO 5 mg DAILY RACQUEL Administration Aspirin 81 mg 01/01/18 10:00 01/01/18 09:51 Asa - PO 81 mg DAILY RACQUEL Administration Azithromycin 500 mg 01/01/18 10:00 01/01/18 09:52 Zithromax - PO 500 mg DAILY RACQUEL Administration Clopidogrel Bisulfate 75 mg 01/01/18 10:00 01/01/18 09:52 Plavix - PO 75 mg DAILY RACQUEL Administration Furosemide 20 mg 01/01/18 14:00 01/01/18 14:52 Lasix - PO 20 mg BIDLASIX RACQUEL Administration Heparin Sodium (Porcine) 5,000 unit 01/01/18 14:00 01/01/18 14:52 Heparin - SQ 5,000 unit TID RACQUEL Administration CEFTRIAXONE 1 G/50 ML PREMIX 50 mls @ 100 mls/hr 01/01/18 10:00 01/01/18 09: 51 Ceftriaxone 1 Gm-D5w Bag IVPB 100 mls/hr DAILY RACQUEL Administration Insulin Aspart 0 vial 01/01/18 07:00 01/01/18 17:35 Novolog Vial Sliding Scale - SQ 4 units ACHS RACQUEL Administration Protocol Losartan Potassium 100 mg 01/01/18 10:00 01/01/18 09:51 Cozaar - PO 100 mg DAILY RACQUEL Administration Metoprolol Tartrate 50 mg 01/01/18 10:00 01/01/18 09:52 Lopressor - PO 50 mg DAILY RACQUEL Administration Oseltamivir Phosphate 30 mg 01/01/18 10:00 01/01/18 10:48 Tamiflu - PO 01/06/18 09:59 30 mg BID RACQUEL Administration Rosuvastatin Calcium 2.5 mg 01/01/18 10:00 01/01/18 09:52 Crestor - PO 2.5 mg DAILY RACQUEL Administration Home Medications Medication Instructions Recorded Amlodipine Besylate 5 mg PO DAILY 12/31/17 Aspirin [ASA -] 81 mg PO DAILY 12/31/17 Clopidogrel Bisulfate [Clopidogrel] 75 mg PO DAILY 12/31/17 Furosemide 20 mg PO BID 12/31/17 Glimepiride 1 mg PO BID 12/31/17 Linagliptin [Tradjenta] 5 mg PO DAILY 12/31/17 Losartan Potassium 100 mg PO DAILY 12/31/17 Metoprolol Tartrate 50 mg PO DAILY 12/31/17 [place]-3 Fatty Acids [[place]-3] 1,000 mg PO DAILY 12/31/17 Rosuvastatin Calcium [Crestor] 2.5 mg PO DAILY 12/31/17 Oseltamivir Phosphate [Tamiflu] 75 mg PO BID #10 capsule 01/01/18 PE: GENERAL: Awake, alert, and fully oriented, in no acute distress. HEAD: Normal with no signs of trauma. EYES: Pupils equal, round and reactive to light, extraocular movements intact, sclera anicteric, conjunctiva clear. No lid lag. EARS, NOSE, THROAT: Ears normal, nares patent, oropharynx clear without exudates. Moist mucous membranes. NECK: Normal range of motion, supple without lymphadenopathy, JVD, or masses. LUNGS: Breath sounds equal, breath sounds decreased BL HEART: Regular rate and rhythm, normal S1 and S2 without murmur, rub or gallop. ABDOMEN: Soft, nontender, not distended, normoactive bowel sounds, no guarding, no rebound, no masses. No hepatomegaly or splenomegaly. EXTREMITIES: 2+ pulses, warm, well-perfused. No cyanosis. No clubbing. No peripheral edema. chronic venous stasis changes NEUROLOGICAL: Cranial nerves II-XII intact. Normal speech. gait not observed. SKIN: Warm, dry, normal turgor, no rashes or lesions noted, normal capillary refill. Microbiology 01/01/18 10:17 Urine - Urine Clean Catch Legionella Antigen - Final 01/01/18 10:17 Urine - Urine Clean Catch Streptococcus pneumoniae Antigen ( M - Final 12/31/17 23:00 Blood - Peripheral Venous Blood Culture - Preliminary Pending Organism, 12/31/17 23:00 Blood - Peripheral Venous Blood Culture - Preliminary Pending Organism A/P: Patient is a 87 year old male with a history of AVR recently, [place], HTN, HLD, carotid stenosis, CKD, DM, vocal chord malignancy, anemia, is admitted to the hospital s/p fall with possible syncopal episode and fevers/chills with crackles on exam suggestive of pneumonia and influenza #Acute Pneumonia due to Pneumonia/ infuenza, Pending RV panel. will repeat blood cx in am Pending Bcx, Ucx, urine legionella, and pneumonia, continue tamiflu 30mg po bid renally dosed, continue ceftriaxone IV and zithromax #WV: positive for mild elevation of Troponin 0.02-->0.02--> 0.05 , continue ASA , plavix #HTN Uncontrolled: with elevated BNP on LAsix 20mg po bid, amlodipine, losartan , lasix, lopressor #T2DM continue Ss, with BGms # CKD : stable Prophylaxis DVT: heparin Physical Examination Vital Signs: Vital Signs Temperature 102.2 F H 01/01/18 14:35 Pulse Rate 88 01/01/18 14:35 Respiratory Rate 22 01/01/18 14:35 Blood Pressure 164/67 01/01/18 14:35 O2 Sat by Pulse Oximetry (%) 97 01/01/18 13:25 Labs: CBC, BMP 01/01/18 08:11 01/01/18 08:11
[2018-01-01] MEDS ORDERED: PT OWN MED DRAWER 7, Y5N ONE (22:25)
[2018-01-02 06:42] LABS: BASO % 0.4 % (0-2.0); EOS % 0.7 % (0-4.5); HEMATOCRIT 34.8 % (35.4-49); HEMOGLOBIN 11.9 GM/dL (11.7-16.9); LYMPH % 8.5 % (8-40); MCH 29.5 pg (25.7-33.7); MCHC 34.3 g/dl (32.0-35.9); MEAN CELL VOLUME 86.1 fl (80-96); MEAN PLT VOLUME 8.3 fl (7.5-11.1); MONO % 11.7 % (3.8-10.2); NEUT % 78.7 % (42.8-82.8); PLATELET COUNT 128 K/MM3 (134-434); RBC 4.04 M/mm3 (4.00-5.60); RDW 13.2 % (11.9-15.9); WHITE BLOOD COUNT 7.6 K/mm3 (4.0-10.0)
[2018-01-02 07:05] LABS: ALBUMIN 3.1 g/dl (3.4-5.0); ANION GAP 8 (8-16); BLOOD UREA NITROGEN 33 mg/dL (7-18); CALCIUM 7.8 mg/dL (8.5-10.1); CHLORIDE 100 mmol/L (98-107); CO2 29 mmol/L (21-32); GLUCOSE,RANDOM 112 mg/dL (74-106); MAGNESIUM 2.3 mg/dL (1.8-2.4); POTASSIUM 3.8 mmol/L (3.5-5.1); SODIUM 137 mmol/L (136-145)
[2018-01-02 07:09] LABS: ALK PHOS 56 U/L (45-117); BILIRUBIN,TOTAL 0.5 mg/dL (0.2-1.0); CREATININE 1.7 mg/dL (0.7-1.3); PHOSPHOROUS 3.3 mg/dL (2.5-4.9); SGOT/AST 47 U/L (15-37); SGPT/ALT 31 U/L (12-78)
[2018-01-02] MEDS: INSULIN SLIDING SCALE (NOVOLOG) 1 VIAL SQ SCH ×4 (07:49→22:07)
[2018-01-02] MEDS: HEPARIN NA (PORCINE) 5,000 UNITS/ML 1ML VIAL SQ SCH ×3 (07:49→22:08)
[2018-01-02] MEDS: FUROSEMIDE 20 MG TABLET (FP) PO SCH ×2 (07:49→13:41)
[2018-01-02] MEDS ORDERED: PT OWN MED DRAWER 7, Y5N ONE ×3 (09:09→21:42)
[2018-01-02] MEDS: CLOPIDOGREL BISULFATE 75 MG TABLET (FP) PO SCH (09:19)
[2018-01-02] MEDS: amLODIPine BESYLATE 5 MG TABLET (FP) PO SCH (09:19)
[2018-01-02] MEDS: LOSARTAN POTASSIUM 50 MG TABLET (FP) PO SCH (09:19)
[2018-01-02] MEDS: METOPROLOL TARTRATE 50 MG TABLET (FP) PO SCH (09:19)
[2018-01-02] MEDS: ASPIRIN 81 MG CHEWABLE TABLETS PO SCH (09:19)
[2018-01-02] MEDS: CEFTRIAXONE 1 G/50 ML PREMIX 50 ML IVPB SCH (09:19)
[2018-01-02] MEDS: OSELTAMIVIR PHOSPHATE 30 MG CAPSULE PO SCH ×2 (09:20→22:08)
[2018-01-02] MEDS: ROSUVASTATIN CA 5 MG TABLET (FP) PO SCH (09:21)
[2018-01-02] MEDS: AZITHROMYCIN 250 MG TABLET PO SCH (09:21)
--- NOTE | 2018-01-02 10:03 | PN ---
Progress Note, Physician History of Present Illness: Pt states he feels well. Has been afebrile since yesterday afternoon. Tmax 99.2F. Denies cough/shortness of breath, chest pain. No other specific complaints. - Current Medication List Current Medications: Active Medications Acetaminophen (Ofirmev Injection -) 1,000 mg IVPB Q8H PRN PRN Reason: FEVER Last Admin: 01/01/18 16:06 Dose: 1,000 mg Amlodipine Besylate (Norvasc -) 5 mg PO DAILY [facility] Last Admin: 01/02/18 09:19 Dose: 5 mg Aspirin (Asa -) 81 mg PO DAILY [facility] Last Admin: 01/02/18 09:19 Dose: 81 mg Azithromycin (Zithromax -) 500 mg PO DAILY [facility] Last Admin: 01/02/18 09:21 Dose: 500 mg Clopidogrel Bisulfate (Plavix -) 75 mg PO DAILY [facility] Last Admin: 01/02/18 09:19 Dose: 75 mg Furosemide (Lasix -) 20 mg PO BIDLASIX [facility] Last Admin: 01/02/18 07:49 Dose: 20 mg Heparin Sodium (Porcine) (Heparin -) 5,000 unit SQ TID [facility] Last Admin: 01/02/18 07:49 Dose: 5,000 unit CEFTRIAXONE 1 G/50 ML PREMIX (Ceftriaxone 1 Gm-D5w Bag) 50 mls @ 100 mls/hr IVPB DAILY [facility] Last Admin: 01/02/18 09:19 Dose: 100 mls/hr Insulin Aspart (Novolog Vial Sliding Scale -) 0 vial SQ ACHS [facility] PRN Reason: Protocol Last Admin: 01/02/18 07:49 Dose: Not Given Losartan Potassium (Cozaar -) 100 mg PO DAILY [facility] Last Admin: 01/02/18 09:19 Dose: 100 mg Metoprolol Tartrate (Lopressor -) 50 mg PO DAILY [facility] Last Admin: 01/02/18 09:19 Dose: 50 mg Oseltamivir Phosphate (Tamiflu -) 30 mg PO BID [facility] Stop: 01/06/18 09:59 Last Admin: 01/02/18 09:20 Dose: 30 mg Rosuvastatin Calcium (Crestor -) 2.5 mg PO DAILY [facility] Last Admin: 01/02/18 09:21 Dose: 2.5 mg - Objective Vital Signs: Vital Signs Temperature 98 F 01/02/18 09:00 Pulse Rate 88 02/18/18 09:00 Respiratory Rate 22 01/02/18 09:00 Blood Pressure 132/63 01/02/18 09:00 O2 Sat by Pulse Oximetry (%) 96 01/01/18 21:00 Constitutional: Yes: No Distress, Calm Cardiovascular: Yes: Tachycardia Respiratory: Yes: Rales (bibasilar) Genitourinary: Yes: WNL Extremities: Yes: WNL Neurological: Yes: Alert, Oriented Psychiatric: Yes: Alert Labs: CBC, BMP 01/02/18 05:55 01/02/18 05:55 INR, PTT INR 1.08 (0.82-1.09) 12/31/17 22:43 Microbiology 12/31/17 23:00 Blood - Peripheral Venous Blood Culture - Preliminary Alpha Hemolytic Streptococcus 12/31/17 23:00 Blood - Peripheral Venous Blood Culture - Preliminary Alpha Hemolytic Streptococcus 12/31/17 22:43 Urine - Urine Clean Catch Urine Culture - Preliminary Non Lactose Fermenting Gnb 01/01/18 10:17 Urine - Urine Clean Catch Legionella Antigen - Final 01/01/18 10:17 Urine - Urine Clean Catch Streptococcus pneumoniae Antigen ( M - Final Problem List - Problems (1) H/O aortic valve replacement Code(s): Z95.2 - PRESENCE OF PROSTHETIC HEART VALVE (2) Aortic stenosis Code(s): I35.0 - NONRHEUMATIC AORTIC (VALVE) STENOSIS Qualifiers: Cardiac valve disease etiology: nonrheumatic Qualified Code(s): I35.0 - Nonrheumatic aortic (valve) stenosis (3) CAD (coronary artery disease) Code(s): I25.10 - ATHSCL HEART DISEASE OF [place] CORONARY ARTERY W/O ANG PCTRS Qualifiers: Coronary Disease-Associated Artery/Lesion type: [place] artery [place] vs. transplanted heart: [place] heart Associated angina: without angina Qualified Code(s): I25.10 - Atherosclerotic heart disease of [place] coronary artery without angina pectoris (4) CKD (chronic kidney disease) Code(s): N18.9 - CHRONIC KIDNEY DISEASE, UNSPECIFIED Qualifiers: Chronic kidney disease stage: stage 2 (mild) Qualified Code(s): N18.2 - Chronic kidney disease, stage 2 (mild) (5) HTN (hypertension) Code(s): I10 - ESSENTIAL (PRIMARY) HYPERTENSION Qualifiers: Hypertension type: essential hypertension (6) Hx of CABG Code(s): Z95.1 - PRESENCE OF AORTOCORONARY BYPASS GRAFT Assessment/Plan Hx of vocal cord malignancy aortic stenosis s/p AVR Streptococcal bacteremia Possible Influenza UTI DM - continue current antibiotics - f/u repeat blood cultures, influenza testing - consider echo - continue monitor vitals pt appears stable at this time
--- NOTE | 2018-01-02 10:39 | PN ---
Progress Note, Physician Chief Complaint: Resting comfortable. History of Present Illness: Patient was seen and examined. Awake and alert. Chart was reviewed Denies chest pain, SOB or palpitations - Current Medication List Current Medications: Active Medications Acetaminophen (Ofirmev Injection -) 1,000 mg IVPB Q8H PRN PRN Reason: FEVER Last Admin: 01/01/18 16:06 Dose: 1,000 mg Amlodipine Besylate (Norvasc -) 5 mg PO DAILY [facility] Last Admin: 01/02/18 09:19 Dose: 5 mg Aspirin (Asa -) 81 mg PO DAILY [facility] Last Admin: 01/02/18 09:19 Dose: 81 mg Azithromycin (Zithromax -) 500 mg PO DAILY [facility] Last Admin: 01/02/18 09:21 Dose: 500 mg Clopidogrel Bisulfate (Plavix -) 75 mg PO DAILY [facility] Last Admin: 01/02/18 09:19 Dose: 75 mg Furosemide (Lasix -) 20 mg PO BIDLASIX [facility] Last Admin: 01/02/18 07:49 Dose: 20 mg Heparin Sodium (Porcine) (Heparin -) 5,000 unit SQ TID [facility] Last Admin: 01/02/18 07:49 Dose: 5,000 unit CEFTRIAXONE 1 G/50 ML PREMIX (Ceftriaxone 1 Gm-D5w Bag) 50 mls @ 100 mls/hr IVPB DAILY [facility] Last Admin: 01/02/18 09:19 Dose: 100 mls/hr Insulin Aspart (Novolog Vial Sliding Scale -) 0 vial SQ ACHS [facility] PRN Reason: Protocol Last Admin: 01/02/18 07:49 Dose: Not Given Losartan Potassium (Cozaar -) 100 mg PO DAILY [facility] Last Admin: 01/02/18 09:19 Dose: 100 mg Metoprolol Tartrate (Lopressor -) 50 mg PO DAILY [facility] Last Admin: 01/02/18 09:19 Dose: 50 mg Oseltamivir Phosphate (Tamiflu -) 30 mg PO BID [facility] Stop: 01/06/18 09:59 Last Admin: 01/02/18 09:20 Dose: 30 mg Rosuvastatin Calcium (Crestor -) 2.5 mg PO DAILY [facility] Last Admin: 01/02/18 09:21 Dose: 2.5 mg - Objective Vital Signs: Vital Signs Temperature 98 F 01/02/18 09:00 Pulse Rate 88 01/02/18 09:00 Respiratory Rate 22 01/02/18 09:00 Blood Pressure 132/63 01/02/18 09:00 O2 Sat by Pulse Oximetry (%) 96 01/01/18 21:00 Constitutional: Yes: Well Nourished Eyes: Yes: PERRL HENT: Yes: Atraumatic Neck: Yes: Supple Cardiovascular: Yes: Regular Rate and Rhythm, S1, S2 Respiratory: Yes: Diminished Gastrointestinal: Yes: Normal Bowel Sounds, Soft. No: Tenderness Edema: No Additional Findings/Remarks: - Review of Systems Constitutional: denies: Fever. denies: Chills Cardiovascular: denies: Chest Pain, Palpitations, Shortness of Breath Respiratory: denies: Cough, Hemoptysis, Orthopnea, PND, SOB, SOB on Exertion Genitourinary: denies: Dysuria, Hematuria Neurological: reports: Dizziness, Syncope. denies: Confusion, Headache, Seizure , Unsteady Gait, Weakness Labs: CBC, BMP 01/02/18 05:55 01/02/18 05:55 INR, PTT INR 1.08 (0.82-1.09) 12/31/17 22:43 Problem List - Problems (1) S/P TAVR (transcatheter aortic valve replacement) Code(s): Z95.2 - PRESENCE OF PROSTHETIC HEART VALVE (2) Syncope Code(s): R55 - SYNCOPE AND COLLAPSE Qualifiers: Syncope type: unspecified Qualified Code(s): R55 - Syncope and collapse (3) Aortic stenosis Code(s): I35.0 - NONRHEUMATIC AORTIC (VALVE) STENOSIS Qualifiers: Cardiac valve disease etiology: nonrheumatic Qualified Code(s): I35.0 - Nonrheumatic aortic (valve) stenosis (4) CAD (coronary artery disease) Code(s): I25.10 - ATHSCL HEART DISEASE OF [place] CORONARY ARTERY W/O ANG PCTRS Qualifiers: Coronary Disease-Associated Artery/Lesion type: [place] artery [place] vs. transplanted heart: [place] heart Associated angina: without angina Qualified Code(s): I25.10 - Atherosclerotic heart disease of [place] coronary artery without angina pectoris (5) CKD (chronic kidney disease) Code(s): N18.9 - CHRONIC KIDNEY DISEASE, UNSPECIFIED Qualifiers: Chronic kidney disease stage: stage 2 (mild) Qualified Code(s): N18.2 - Chronic kidney disease, stage 2 (mild) (6) Carotid artery disease Code(s): I77.9 - DISORDER OF ARTERIES AND ARTERIOLES, UNSPECIFIED (7) Diabetes mellitus Code(s): E11.9 - TYPE 2 DIABETES MELLITUS WITHOUT COMPLICATIONS Qualifiers: Diabetes mellitus type: type 2 Diabetes mellitus complication status: without complication Qualified Code(s): E11.9 - Type 2 diabetes mellitus without complications (8) HTN (hypertension) Code(s): I10 - ESSENTIAL (PRIMARY) HYPERTENSION Qualifiers: Hypertension type: essential hypertension (9) History of percutaneous coronary intervention Code(s): Z98.89 - OTHER SPECIFIED POSTPROCEDURAL STATES * DO NOT USE * (10) Hx of CABG Code(s): Z95.1 - PRESENCE OF AORTOCORONARY BYPASS GRAFT (11) Hypercholesterolemia Code(s): E78.0 - PURE HYPERCHOLESTEROLEMIA * DO NOT USE * Assessment/Plan 1. Possible near syncope - vasovagal 2. Possible Influenza +/- pneumonia + strep bacteremia 3. Post TAVR for aortic valve stenosis 4. CAD s/p CABG, PCI/stent, angina pectoris 5. Hypertension/hypertensive cardiovascular disease 6. Hypercholesterolemia 7. Diabetes mellitus and diabetic neuropathy 8. History of vocal cord malignancy PLAN: 1. Continue telemetry monitoring 2. Continue Metoprolol, Losartan and Amlodipine 3. Continue ASA and Plavix 4. Continue Furosemide 5. Continue Crestor 6. Empiric antibiotic coverage and Tamiflu 7. Transthoracic echocardiography to assess LV/RV and prosthetic valve Further plans are to follow Gallo Epps MD
--- NOTE | 2018-01-02 10:44 | CON.PULM ---
Consult Consult Specialty:: PULM/CCM Referred by:: KALEB Reason for Consultation:: questionable PNA - History of Present Illness Chief Complaint: fall History of Present Illness: 87 M, AVR, [place], HTN, HLD, carotid stenosis, CKD, DM, vocal chord malignancy, and anemia. Admitted via the ER due to fall. Patient tells me that he bent down to do something for his cat and got up too quickly and then felt lightheaded. He says that he he did not pass out of have CP or palpitations. Reports that he made mild trauma to the back of his left head. No LOC. Noted to have fever. No travel history or sick contacts. CXR: no acute process (improved from previous CXR on last admission). - History Source History Provided By: Patient Limitations to Obtaining History: No Limitations - Past Medical History Cardio/Vascular: Yes: Aortic Stenosis (TAVR), CAD (CABG), CHF, HTN, Hyperlipdemia, [place], Murmur Renal/: Yes: Renal Inusuff Musculoskeletal: Yes: Other (low back pain x 2 wks) Endocrine: Yes: Diabetes Mellitus - Past Surgical History Past Surgical History: Yes: CABG, Stent, Valve Replacement (TAVR) - Alcohol/Substance Use Hx Alcohol Use: No - Smoking History Smoking history: Former smoker Have you smoked in the past 12 months: No Aproximately how many cigarettes per day: 0 Home Medications - Allergies Allergies/Adverse Reactions: Allergies Allergy/AdvReac Type Severity Reaction Status Date / Time shrimp Allergy Verified 12/31/17 21:44 walnut Allergy Verified 12/31/17 21:44 SHRHIMP AdvReac Rash Uncoded 12/31/17 21:44 WALNUTS AdvReac Hives Uncoded 12/31/17 21:44 - Home Medications Home Medications: Ambulatory Orders Amlodipine Besylate 5 mg PO DAILY 12/31/17 Aspirin [ASA -] 81 mg PO DAILY 12/31/17 Clopidogrel Bisulfate [Clopidogrel] 75 mg PO DAILY 12/31/17 Furosemide 20 mg PO BID 12/31/17 Glimepiride 1 mg PO BID 12/31/17 Linagliptin [Tradjenta] 5 mg PO DAILY 12/31/17 Losartan Potassium 100 mg PO DAILY 12/31/17 Metoprolol Tartrate 50 mg PO DAILY 12/31/17 [place]-3 Fatty Acids [[place]-3] 1,000 mg PO DAILY 12/31/17 Rosuvastatin Calcium [Crestor] 2.5 mg PO DAILY 12/31/17 Oseltamivir Phosphate [Tamiflu] 75 mg PO BID #10 capsule 01/01/18 Review of Systems - Review of Systems Constitutional: reports: Fever. denies: Chills, Night Sweats, Unintentional Wgt. Loss, Weakness Eyes: reports: No Symptoms HENT: reports: No Symptoms Neck: reports: No Symptoms Cardiovascular: reports: No Symptoms. denies: Chest Pain, Edema, Palpitations, Shortness of Breath Respiratory: reports: No Symptoms. denies: Cough, Hemoptysis, SOB, SOB on Exertion, Wheezing Gastrointestinal: reports: No Symptoms Genitourinary: reports: No Symptoms Breasts: reports: No Symptoms Reported Musculoskeletal: reports: No Symptoms Integumentary: reports: No Symptoms Neurological: reports: No Symptoms. denies: Change in Speech, Confusion, Headache, Numbness, Seizure, Weakness Endocrine: reports: No Symptoms Hematology/Lymphatic: reports: No Symptoms Psychiatric: reports: No Symptoms Physical Exam Vital Sings: Vital Signs Temperature 98 F 01/02/18 09:00 Pulse Rate 88 01/02/18 09:00 Respiratory Rate 22 01/02/18 09:00 Blood Pressure 132/63 01/02/18 09:00 O2 Sat by Pulse Oximetry (%) 96 01/01/18 21:00 Constitutional: Yes: Well Nourished, No Distress Eyes: Yes: Conjunctiva Clear, EOM Intact HENT: Yes: Atraumatic, Normocephalic Neck: Yes: Supple, Trachea Midline Cardiovascular: Yes: Regular Rate and Rhythm Respiratory: Yes: On Nasal O2, Rhonchi. No: Accessory Muscle Use, Rales, SOB, Stridor, Tachypnea, Wheezes ...Inspection: Yes: WNL ...Clubbing: No Gastrointestinal: Yes: WNL, Normal Bowel Sounds, Soft, Abdomen, Obese Renal/: Yes: WNL Breast(s): Yes: WNL Musculoskeletal: Yes: WNL Extremities: Yes: WNL Edema: No Peripheral Pulses WNL: Yes Integumentary: Yes: WNL Neurological: Yes: WNL, Alert, Oriented ...Motor Strength: WNL Psychiatric: Yes: WNL, Alert, Oriented Labs: CBC, BMP 01/02/18 05:55 01/02/18 05:55 Imaging - Results Chest X-ray: Report Reviewed, Image Reviewed Problem List - Problems (1) H/O aortic valve replacement Code(s): Z95.2 - PRESENCE OF PROSTHETIC HEART VALVE (2) S/P TAVR (transcatheter aortic valve replacement) Code(s): Z95.2 - PRESENCE OF PROSTHETIC HEART VALVE (3) Syncope Code(s): R55 - SYNCOPE AND COLLAPSE Qualifiers: Syncope type: unspecified Qualified Code(s): R55 - Syncope and collapse (4) Weakness Code(s): R53.1 - WEAKNESS (5) Aortic stenosis Code(s): I35.0 - NONRHEUMATIC AORTIC (VALVE) STENOSIS Qualifiers: Cardiac valve disease etiology: nonrheumatic Qualified Code(s): I35.0 - Nonrheumatic aortic (valve) stenosis (6) CAD (coronary artery disease) Code(s): I25.10 - ATHSCL HEART DISEASE OF [place] CORONARY ARTERY W/O ANG PCTRS Qualifiers: Coronary Disease-Associated Artery/Lesion type: [place] artery [place] vs. transplanted heart: [place] heart Associated angina: without angina Qualified Code(s): I25.10 - Atherosclerotic heart disease of [place] coronary artery without angina pectoris (7) CKD (chronic kidney disease) Code(s): N18.9 - CHRONIC KIDNEY DISEASE, UNSPECIFIED Qualifiers: Chronic kidney disease stage: stage 2 (mild) Qualified Code(s): N18.2 - Chronic kidney disease, stage 2 (mild) (8) Carotid artery disease Code(s): I77.9 - DISORDER OF ARTERIES AND ARTERIOLES, UNSPECIFIED (9) Diabetes mellitus Code(s): E11.9 - TYPE 2 DIABETES MELLITUS WITHOUT COMPLICATIONS Qualifiers: Diabetes mellitus type: type 2 Diabetes mellitus complication status: without complication Qualified Code(s): E11.9 - Type 2 diabetes mellitus without complications (10) HTN (hypertension) Code(s): I10 - ESSENTIAL (PRIMARY) HYPERTENSION Qualifiers: Hypertension type: essential hypertension (11) History of percutaneous coronary intervention Code(s): Z98.89 - OTHER SPECIFIED POSTPROCEDURAL STATES * DO NOT USE * (12) Hx of CABG Code(s): Z95.1 - PRESENCE OF AORTOCORONARY BYPASS GRAFT (13) Hypercholesterolemia Code(s): E78.0 - PURE HYPERCHOLESTEROLEMIA * DO NOT USE * (14) Renal insufficiency Code(s): N28.9 - DISORDER OF KIDNEY AND URETER, UNSPECIFIED Assessment/Plan Near Syncope being worked up O2 as needed Noted ABX per ID: Would have a low threshold to stop: no radiographic or clinical symptoms concerning for PNA Fall precautions Telemetry monitoring Will follow Thank you. Dr Schwab
[2018-01-02] MEDS ORDERED: INSULIN (NOVOLOG) ASPART 100 UNITS/ML 10ML VIAL ONE (13:05)
--- NOTE | 2018-01-02 17:25 | PN ---
Progress Note (short form) - Note Progress Note: Patient is feeling better, with no aCUTE DISTRESS. Vital Signs Temperature 98 F 01/02/18 09:00 Pulse Rate 88 01/02/18 09:00 Respiratory Rate 22 01/02/18 09:00 Blood Pressure 132/63 01/02/18 09:00 O2 Sat by Pulse Oximetry (%) 97 01/02/18 09:00 GENERAL: Awake, alert, and fully oriented, in no acute distress. HEAD: Normal with no signs of trauma. EYES: Pupils equal, round and reactive to light, extraocular movements intact, sclera anicteric, conjunctiva clear. EARS, NOSE, THROAT: Ears normal, oropharynx clear without exudates. Moist mucous membranes. NECK: Normal range of motion, supple without lymphadenopathy, JVD, or masses. LUNGS: Breath sounds equal, breath sounds decreased BL HEART: Regular rate and rhythm, normal S1 and S2 POSITIVE . ABDOMEN: Soft, nontender, not distended, normoactive bowel sounds, no guarding, no rebound, no masses. No hepatomegaly or splenomegaly. EXTREMITIES: 2+ pulses, warm, well-perfused. No cyanosis. No clubbing. No peripheral edema. chronic venous stasis changes NEUROLOGICAL: Cranial nerves II-XII intact. Normal speech. gait not observed. SKIN: Warm, dry, normal turgor, no rashes or lesions noted, normal capillary refill. CBCD WBC 7.6 K/mm3 (4.0-10.0) 01/02/18 05:55 RBC 4.04 M/mm3 (4.00-5.60) 01/02/18 05:55 Hgb 11.9 GM/dL (11.7-16.9) 01/02/18 05:55 Hct 34.8 % (35.4-49) L 01/02/18 05:55 MCV 86.1 fl (80-96) 01/02/18 05:55 MCHC 34.3 g/dl (32.0-35.9) 01/02/18 05:55 RDW 13.2 % (11.9-15.9) 01/02/18 05:55 Plt Count 128 K/MM3 (134-434) L 01/02/18 05:55 MPV 8.3 fl (7.5-11.1) 01/02/18 05:55 CMP Sodium 137 mmol/L (136-145) 01/02/18 05:55 Potassium 3.8 mmol/L (3.5-5.1) 01/02/18 05:55 Chloride 100 mmol/L (98-107) 01/02/18 05:55 Carbon Dioxide 29 mmol/L (21-32) 01/02/18 05:55 Anion Gap 8 (8-16) 01/02/18 05:55 BUN 33 mg/dL (7-18) H D 01/02/18 05:55 Creatinine 1.7 mg/dL (0.7-1.3) H 01/02/18 05:55 Creat Clearance w eGFR 38.14 (>60) 01/02/18 05:55 Random Glucose 112 mg/dL (74-106) H D 01/02/18 05:55 Calcium 7.8 mg/dL (8.5-10.1) L 01/02/18 05:55 Total Bilirubin 0.5 mg/dL (0.2-1.0) 01/02/18 05:55 AST 47 U/L (15-37) H D 01/02/18 05:55 ALT 31 U/L (12-78) D 01/02/18 05:55 Alkaline Phosphatase 56 U/L (45-117) 01/02/18 05:55 Total Protein 7.0 g/dl (6.4-8.2) 01/02/18 05:55 Albumin 3.1 g/dl (3.4-5.0) L 01/02/18 05:55 CARDIAC ENZYMES Creatine Kinase 293 IU/L (39-308) 01/01/18 08:11 Troponin I 0.05 ng/ml (0.00-0.05) D 01/01/18 08:11 Current Medications Generic Name Dose Route Start Last Admin Trade Name Freq PRN Reason Stop Dose Admin Acetaminophen 1,000 mg 01/01/18 15:10 01/01/18 16:06 Ofirmev Injection - IVPB 1,000 mg Q8H PRN Administration FEVER Amlodipine Besylate 5 mg 01/01/18 10:00 01/02/18 09:19 Norvasc - PO 5 mg DAILY [facility] Administration Aspirin 81 mg 01/01/18 10:00 01/02/18 09:19 Asa - PO 81 mg DAILY [facility] Administration Azithromycin 500 mg 01/01/18 10:00 01/02/18 09:21 Zithromax - PO 500 mg DAILY [facility] Administration Clopidogrel Bisulfate 75 mg 01/01/18 10:00 01/02/18 09:19 Plavix - PO 75 mg DAILY [facility] Administration Furosemide 20 mg 01/01/18 14:00 01/02/18 13:41 Lasix - PO 20 mg BIDLASIX [facility] Administration Heparin Sodium (Porcine) 5,000 unit 01/01/18 14:00 01/02/18 13:41 Heparin - SQ 5,000 unit TID [facility] Administration CEFTRIAXONE 1 G/50 ML PREMIX 50 mls @ 100 mls/hr 01/01/18 10:00 01/02/18 09: 19 Ceftriaxone 1 Gm-D5w Bag IVPB 100 mls/hr DAILY [facility] Administration Insulin Aspart 0 vial 01/01/18 07:00 01/02/18 13:06 Novolog Vial Sliding Scale - SQ 2 units ACHS [facility] Administration Protocol Losartan Potassium 100 mg 01/01/18 10:00 01/02/18 09:19 Cozaar - PO 100 mg DAILY [facility] Administration Metoprolol Tartrate 50 mg 01/01/18 10:00 01/02/18 09:19 Lopressor - PO 50 mg DAILY [facility] Administration Oseltamivir Phosphate 30 mg 01/01/18 10:00 01/02/18 09:20 Tamiflu - PO 01/06/18 09:59 30 mg BID [facility] Administration Rosuvastatin Calcium 2.5 mg 01/01/18 10:00 01/02/18 09:21 Crestor - PO 2.5 mg DAILY [facility] Administration Home Medications Medication Instructions Recorded Amlodipine Besylate 5 mg PO DAILY 12/31/17 Aspirin [ASA -] 81 mg PO DAILY 12/31/17 Clopidogrel Bisulfate [Clopidogrel] 75 mg PO DAILY 12/31/17 Furosemide 20 mg PO BID 12/31/17 Glimepiride 1 mg PO BID 12/31/17 Linagliptin [Tradjenta] 5 mg PO DAILY 12/31/17 Losartan Potassium 100 mg PO DAILY 12/31/17 Metoprolol Tartrate 50 mg PO DAILY 12/31/17 [place]-3 Fatty Acids [[place]-3] 1,000 mg PO DAILY 12/31/17 Rosuvastatin Calcium [Crestor] 2.5 mg PO DAILY 12/31/17 Oseltamivir Phosphate [Tamiflu] 75 mg PO BID #10 capsule 01/01/18 Microbiology 12/31/17 23:00 Blood - Peripheral Venous Blood Culture - Preliminary Streptococcus Pneumoniae 12/31/17 23:00 Blood - Peripheral Venous Blood Culture - Preliminary Alpha Hemolytic Streptococcus 12/31/17 22:43 Urine - Urine Clean Catch Urine Culture - Preliminary Non Lactose Fermenting Gnb 01/01/18 10:17 Urine - Urine Clean Catch Legionella Antigen - Final 01/01/18 10:17 Urine - Urine Clean Catch Streptococcus pneumoniae Antigen ( M - Final A/P: Patient is a 87 year old male with a history of AVR recently, [place], HTN, HLD, carotid stenosis, CKD, DM, vocal chord malignancy, anemia, is admitted to the hospital s/p fall with possible syncopal episode and fevers/chills with crackles on exam suggestive of pneumonia and influenza # Strept.Pneumonia bacteremia continue IV antibiotic Rocephin and zithromax , will wait for sensitivity #Acute Pneumonia /infuenza continue tamiflu 30mg po bid renally dosed. #[place]: positive for mild elevation of Troponin 0.02-->0.02--> 0.05 , continue ASA , plavix #HTN Uncontrolled: with elevated BNP on LAsix 20mg po bid, amlodipine, losartan , lasix, lopressor #T2DM continue Ss, with BGms # CKD : stable Prophylaxis DVT: heparin Visit type - Emergency Visit Emergency Visit: Yes ED Registration Date: 01/01/18 Care time: The patient presented to the Emergency Department on the above date and was hospitalized for further evaluation of their emergent condition. - New Patient This patient is new to me today: No - Critical Care Critical Care patient: No - Discharge Referral Referred to [facility] Med P.C.: No
[2018-01-03] MEDS: HEPARIN NA (PORCINE) 5,000 UNITS/ML 1ML VIAL SQ SCH ×3 (06:44→21:35)
[2018-01-03] MEDS: FUROSEMIDE 20 MG TABLET (FP) PO SCH ×2 (06:44→13:29)
[2018-01-03] MEDS: INSULIN SLIDING SCALE (NOVOLOG) 1 VIAL SQ SCH ×4 (06:44→21:34)
[2018-01-03] MEDS: CLOPIDOGREL BISULFATE 75 MG TABLET (FP) PO SCH (09:04)
[2018-01-03] MEDS: amLODIPine BESYLATE 5 MG TABLET (FP) PO SCH (09:04)
[2018-01-03] MEDS: CEFTRIAXONE 1 G/50 ML PREMIX 50 ML IVPB SCH (09:04)
[2018-01-03] MEDS: LOSARTAN POTASSIUM 50 MG TABLET (FP) PO SCH (09:04)
[2018-01-03] MEDS: ASPIRIN 81 MG CHEWABLE TABLETS PO SCH (09:04)
[2018-01-03] MEDS: METOPROLOL TARTRATE 50 MG TABLET (FP) PO SCH (09:04)
[2018-01-03] MEDS: AZITHROMYCIN 250 MG TABLET PO SCH (09:05)
[2018-01-03] MEDS: ROSUVASTATIN CA 5 MG TABLET (FP) PO SCH (09:06)
[2018-01-03] MEDS: OSELTAMIVIR PHOSPHATE 30 MG CAPSULE PO SCH ×2 (09:06→21:35)
--- NOTE | 2018-01-03 10:58 | PN ---
Progress Note, Physician History of Present Illness: No further near or true syncope. No events on telemetry. - Current Medication List Current Medications: Active Medications Acetaminophen (Ofirmev Injection -) 1,000 mg IVPB Q8H PRN PRN Reason: FEVER Last Admin: 01/01/18 16:06 Dose: 1,000 mg Amlodipine Besylate (Norvasc -) 5 mg PO DAILY [facility] Last Admin: 01/03/18 09:04 Dose: 5 mg Aspirin (Asa -) 81 mg PO DAILY [facility] Last Admin: 01/03/18 09:04 Dose: 81 mg Azithromycin (Zithromax -) 500 mg PO DAILY [facility] Last Admin: 01/03/18 09:05 Dose: 500 mg Clopidogrel Bisulfate (Plavix -) 75 mg PO DAILY [facility] Last Admin: 01/03/18 09:04 Dose: 75 mg Furosemide (Lasix -) 20 mg PO BIDLASIX [facility] Last Admin: 01/03/18 06:44 Dose: 20 mg Heparin Sodium (Porcine) (Heparin -) 5,000 unit SQ TID [facility] Last Admin: 01/03/18 06:44 Dose: 5,000 unit CEFTRIAXONE 1 G/50 ML PREMIX (Ceftriaxone 1 Gm-D5w Bag) 50 mls @ 100 mls/hr IVPB DAILY [facility] Last Admin: 01/03/18 09:04 Dose: 100 mls/hr Insulin Aspart (Novolog Vial Sliding Scale -) 0 vial SQ ACHS [facility] PRN Reason: Protocol Last Admin: 01/03/18 06:44 Dose: Not Given Losartan Potassium (Cozaar -) 100 mg PO DAILY [facility] Last Admin: 01/03/18 09:04 Dose: 100 mg Metoprolol Tartrate (Lopressor -) 50 mg PO DAILY [facility] Last Admin: 01/03/18 09:04 Dose: 50 mg Oseltamivir Phosphate (Tamiflu -) 30 mg PO BID [facility] Stop: 01/06/18 09:59 Last Admin: 01/03/18 09:06 Dose: 30 mg Rosuvastatin Calcium (Crestor -) 2.5 mg PO DAILY [facility] Last Admin: 01/03/18 09:06 Dose: 2.5 mg - Objective Vital Signs: Vital Signs Temperature 98 F 01/02/18 21:00 Pulse Rate 98 H 01/03/18 09:00 Respiratory Rate 18 01/03/18 09:00 Blood Pressure 114/72 01/03/18 09:00 O2 Sat by Pulse Oximetry (%) 98 01/03/18 09:00 Constitutional: Yes: No Distress, Calm Neck: Yes: Supple Cardiovascular: Yes: Regular Rate and Rhythm Respiratory: Yes: Regular, Diminished Gastrointestinal: Yes: Normal Bowel Sounds, Soft Edema: No Labs: CBC, BMP 01/02/18 05:55 01/02/18 05:55 INR, PTT INR 1.08 (0.82-1.09) 12/31/17 22:43 - ....Imaging EKG: Report Reviewed (Tele: SR occ PVC, no pauses) Problem List - Problems (1) S/P TAVR (transcatheter aortic valve replacement) Code(s): Z95.2 - PRESENCE OF PROSTHETIC HEART VALVE (2) Syncope Code(s): R55 - SYNCOPE AND COLLAPSE Qualifiers: Syncope type: vasovagal syncope Qualified Code(s): R55 - Syncope and collapse (3) Aortic stenosis Code(s): I35.0 - NONRHEUMATIC AORTIC (VALVE) STENOSIS Qualifiers: Cardiac valve disease etiology: nonrheumatic Qualified Code(s): I35.0 - Nonrheumatic aortic (valve) stenosis (4) CAD (coronary artery disease) Code(s): I25.10 - ATHSCL HEART DISEASE OF [place] CORONARY ARTERY W/O ANG PCTRS Qualifiers: Coronary Disease-Associated Artery/Lesion type: [place] artery [place] vs. transplanted heart: [place] heart Associated angina: without angina Qualified Code(s): I25.10 - Atherosclerotic heart disease of [place] coronary artery without angina pectoris (5) CKD (chronic kidney disease) Code(s): N18.9 - CHRONIC KIDNEY DISEASE, UNSPECIFIED Qualifiers: Chronic kidney disease stage: stage 2 (mild) Qualified Code(s): N18.2 - Chronic kidney disease, stage 2 (mild) (6) Carotid artery disease Code(s): I77.9 - DISORDER OF ARTERIES AND ARTERIOLES, UNSPECIFIED (7) Diabetes mellitus Code(s): E11.9 - TYPE 2 DIABETES MELLITUS WITHOUT COMPLICATIONS Qualifiers: Diabetes mellitus type: type 2 Diabetes mellitus complication status: without complication (8) HTN (hypertension) Code(s): I10 - ESSENTIAL (PRIMARY) HYPERTENSION Qualifiers: Hypertension type: essential hypertension Qualified Code(s): I10 - Essential (primary) hypertension (9) History of percutaneous coronary intervention Code(s): Z98.89 - OTHER SPECIFIED POSTPROCEDURAL STATES * DO NOT USE * (10) Hx of CABG Code(s): Z95.1 - PRESENCE OF AORTOCORONARY BYPASS GRAFT (11) Hypercholesterolemia Code(s): E78.0 - PURE HYPERCHOLESTEROLEMIA * DO NOT USE * Assessment/Plan 1. Possible near syncope - vasovagal 2. Possible Influenza +/- pneumonia + strep bacteremia 3. Post TAVR for aortic valve stenosis 4. CAD s/p CABG, PCI/stent, angina pectoris 5. Hypertension/hypertensive cardiovascular disease 6. Hypercholesterolemia 7. Diabetes mellitus and diabetic neuropathy 8. History of vocal cord malignancy PLAN: 1. Continue telemetry monitoring 2. Continue Metoprolol 50 qd, Losartan 100 qd and Amlodipine 5 qd 3. Continue ASA 81 qd and Plavix 75 qd 4. Continue Furosemide 20 bid 5. Continue Crestor 2.5 qd 6. Empiric antibiotic coverage and Tamiflu, f/u C&S 7. Transthoracic echocardiography to assess LV/RV and prosthetic valve 8. DVT prophylaxis
--- NOTE | 2018-01-03 12:19 | PN ---
Progress Note, Physician History of Present Illness: patient feels much better no complaints son in the room - Current Medication List Current Medications: Active Medications Acetaminophen (Ofirmev Injection -) 1,000 mg IVPB Q8H PRN PRN Reason: FEVER Last Admin: 01/01/18 16:06 Dose: 1,000 mg Amlodipine Besylate (Norvasc -) 5 mg PO DAILY [facility] Last Admin: 01/03/18 09:04 Dose: 5 mg Aspirin (Asa -) 81 mg PO DAILY [facility] Last Admin: 01/03/18 09:04 Dose: 81 mg Azithromycin (Zithromax -) 500 mg PO DAILY [facility] Last Admin: 01/03/18 09:05 Dose: 500 mg Clopidogrel Bisulfate (Plavix -) 75 mg PO DAILY [facility] Last Admin: 01/03/18 09:04 Dose: 75 mg Furosemide (Lasix -) 20 mg PO BIDLASIX [facility] Last Admin: 01/03/18 06:44 Dose: 20 mg Heparin Sodium (Porcine) (Heparin -) 5,000 unit SQ TID [facility] Last Admin: 01/03/18 06:44 Dose: 5,000 unit CEFTRIAXONE 1 G/50 ML PREMIX (Ceftriaxone 1 Gm-D5w Bag) 50 mls @ 100 mls/hr IVPB DAILY [facility] Last Admin: 01/03/18 09:04 Dose: 100 mls/hr Insulin Aspart (Novolog Vial Sliding Scale -) 0 vial SQ ACHS [facility] PRN Reason: Protocol Last Admin: 01/03/18 12:06 Dose: 6 units Losartan Potassium (Cozaar -) 100 mg PO DAILY [facility] Last Admin: 01/03/18 09:04 Dose: 100 mg Metoprolol Tartrate (Lopressor -) 50 mg PO DAILY [facility] Last Admin: 01/03/18 09:04 Dose: 50 mg Oseltamivir Phosphate (Tamiflu -) 30 mg PO BID [facility] Stop: 01/06/18 09:59 Last Admin: 01/03/18 09:06 Dose: 30 mg Rosuvastatin Calcium (Crestor -) 2.5 mg PO DAILY [facility] Last Admin: 01/03/18 09:06 Dose: 2.5 mg - Objective Vital Signs: Vital Signs Temperature 98 F 01/02/18 21:00 Pulse Rate 98 H 01/03/18 09:00 Respiratory Rate 18 01/03/18 09:00 Blood Pressure 114/72 01/03/18 09:00 O2 Sat by Pulse Oximetry (%) 98 01/03/18 09:00 Constitutional: Yes: No Distress, Calm Eyes: Yes: Conjunctiva Clear Cardiovascular: Yes: S1, S2 Respiratory: Yes: Poor Air Entry, Rhonchi, Other Gastrointestinal: Yes: Normal Bowel Sounds, Soft Musculoskeletal: Yes: WNL Extremities: Yes: WNL Neurological: Yes: Alert, Oriented Psychiatric: Yes: Alert, Oriented Labs: CBC, BMP 01/02/18 05:55 01/02/18 05:55 INR, PTT INR 1.08 (0.82-1.09) 12/31/17 22:43 - ....Imaging Chest X-ray: Report Reviewed, Image Reviewed Cat Scan: Report Reviewed, Image Reviewed Ultrasound: Report Reviewed, Image Reviewed Assessment/Plan Problem List - Problems (1) H/O aortic valve replacement Code(s): Z95.2 - PRESENCE OF PROSTHETIC HEART VALVE (2) Aortic stenosis Code(s): I35.0 - NONRHEUMATIC AORTIC (VALVE) STENOSIS Qualifiers: Cardiac valve disease etiology: etiology unspecified Qualified Code(s): I35.0 - Nonrheumatic aortic (valve) stenosis (3) CAD (coronary artery disease) Code(s): I25.10 - ATHSCL HEART DISEASE OF [place] CORONARY ARTERY W/O ANG PCTRS Qualifiers: Coronary Disease-Associated Artery/Lesion type: [place] artery [place] vs. transplanted heart: [place] heart Associated angina: without angina Qualified Code(s): I25.10 - Atherosclerotic heart disease of [place] coronary artery without angina pectoris (4) CKD (chronic kidney disease) Code(s): N18.9 - CHRONIC KIDNEY DISEASE, UNSPECIFIED Qualifiers: Chronic kidney disease stage: stage 2 (mild) Qualified Code(s): N18.2 - Chronic kidney disease, stage 2 (mild) (5) HTN (hypertension) Code(s): I10 - ESSENTIAL (PRIMARY) HYPERTENSION Qualifiers: Hypertension type: essential hypertension (6) Hx of CABG Code(s): Z95.1 - PRESENCE OF AORTOCORONARY BYPASS GRAFT [place] Assessment/Plan 87 y.o. male with PMH of CAD s/p CABG, PCI s/p stent, aortic valve replacement, CKD, HTN presenting with fever/chills and cough, episode of dizziness without LOC Gram + Bacteremia Possible Influenza PNA plan continue current abx await for identification and sensitivities rest continue current mgmt close monitoring rest as per aminataamry team
--- NOTE | 2018-01-03 13:25 | PN ---
Progress Note (short form) - Note Progress Note: PULMONARY Feels better. Denies shortness of breath, cough or wheezing. No fevers or chills. Last Vital Signs Temp Pulse Resp BP Pulse Ox 98 F 98 H 18 114/72 98 01/02/18 21:00 01/03/18 09:00 01/03/18 09:00 01/03/18 09:00 01/03/18 09:00 Intake & Output 12/31/17 01/01/18 01/02/18 01/03/18 23:59 23:59 23:59 23:59 Intake Total 550 410 Output Total 400 1100 Balance 550 10 -1100 Weight 83.915 kg 87.09 kg Gen: NAD in chair Heart: RRR Lung: bibasilar course rales Abd: soft, nontender Ext: chronic changes, trace edema CBC, BMP 01/02/18 05:55 01/02/18 05:55 Active Medications Acetaminophen (Ofirmev Injection -) 1,000 mg IVPB Q8H PRN PRN Reason: FEVER Last Admin: 01/01/18 16:06 Dose: 1,000 mg Amlodipine Besylate (Norvasc -) 5 mg PO DAILY [facility] Last Admin: 01/03/18 09:04 Dose: 5 mg Aspirin (Asa -) 81 mg PO DAILY [facility] Last Admin: 01/03/18 09:04 Dose: 81 mg Azithromycin (Zithromax -) 500 mg PO DAILY [facility] Last Admin: 01/03/18 09:05 Dose: 500 mg Clopidogrel Bisulfate (Plavix -) 75 mg PO DAILY [facility] Last Admin: 01/03/18 09:04 Dose: 75 mg Furosemide (Lasix -) 20 mg PO BIDLASIX [facility] Last Admin: 01/03/18 06:44 Dose: 20 mg Heparin Sodium (Porcine) (Heparin -) 5,000 unit SQ TID [facility] Last Admin: 01/03/18 06:44 Dose: 5,000 unit CEFTRIAXONE 1 G/50 ML PREMIX (Ceftriaxone 1 Gm-D5w Bag) 50 mls @ 100 mls/hr IVPB DAILY [facility] Last Admin: 01/03/18 09:04 Dose: 100 mls/hr Insulin Aspart (Novolog Vial Sliding Scale -) 0 vial SQ ACHS [facility] PRN Reason: Protocol Last Admin: 01/03/18 12:06 Dose: 6 units Losartan Potassium (Cozaar -) 100 mg PO DAILY [facility] Last Admin: 01/03/18 09:04 Dose: 100 mg Metoprolol Tartrate (Lopressor -) 50 mg PO DAILY [facility] Last Admin: 01/03/18 09:04 Dose: 50 mg Oseltamivir Phosphate (Tamiflu -) 30 mg PO BID [facility] Stop: 01/06/18 09:59 Last Admin: 01/03/18 09:06 Dose: 30 mg Rosuvastatin Calcium (Crestor -) 2.5 mg PO DAILY [facility] Last Admin: 01/03/18 09:06 Dose: 2.5 mg A/P Pneumonia Strep Bacteremia r/o Influenza CAD s/p CABG s/p TAVR for HTN DM Hypercholesterolemia - continue antibiotics - complete tamiflu - O2 to keep SpO2 >90% - inhaled bronchodilators as needed - continue cardiac meds - echocardiogram - DVT prophylaxis
--- NOTE | 2018-01-03 19:58 | PN ---
Progress Note (short form) - Note Progress Note: Patient is feeling better with no acute distress. Vital Signs Temperature 98.3 F 01/03/18 14:35 Pulse Rate 64 01/03/18 18:00 Respiratory Rate 18 01/03/18 18:00 Blood Pressure 126/63 01/03/18 18:00 O2 Sat by Pulse Oximetry (%) 98 01/03/18 09:00 GENERAL: Awake, alert, and fully oriented, in no acute distress. HEAD: Normal with no signs of trauma. EYES: Pupils equal, round and reactive to light, extraocular movements intact, sclera anicteric, conjunctiva clear. EARS, NOSE, THROAT: Ears normal, oropharynx clear without exudates. Moist mucous membranes. NECK: Normal range of motion, supple without lymphadenopathy, JVD, or masses. LUNGS: Breath sounds equal, breath sounds decreased BL HEART: Regular rate and rhythm, normal S1 and S2 POSITIVE . ABDOMEN: Soft, nontender, not distended, normoactive bowel sounds, no guarding, no rebound, no masses. ExtrEMITIES: 2+ pulses, warm, well-perfused. No cyanosis. No peripheral edema. chronic venous stasis changes NEUROLOGICAL: Cranial nerves II-XII intact. Normal speech. gait not observed. SKIN: Warm, dry, normal turgor, no rashes or lesions noted, normal capillary refill. CBCD WBC 7.6 K/mm3 (4.0-10.0) 01/02/18 05:55 RBC 4.04 M/mm3 (4.00-5.60) 01/02/18 05:55 Hgb 11.9 GM/dL (11.7-16.9) 01/02/18 05:55 Hct 34.8 % (35.4-49) L 01/02/18 05:55 MCV 86.1 fl (80-96) 01/02/18 05:55 MCHC 34.3 g/dl (32.0-35.9) 01/02/18 05:55 RDW 13.2 % (11.9-15.9) 01/02/18 05:55 Plt Count 128 K/MM3 (134-434) L 01/02/18 05:55 MPV 8.3 fl (7.5-11.1) 01/02/18 05:55 CMP Sodium 137 mmol/L (136-145) 01/02/18 05:55 Potassium 3.8 mmol/L (3.5-5.1) 01/02/18 05:55 Chloride 100 mmol/L (98-107) 01/02/18 05:55 Carbon Dioxide 29 mmol/L (21-32) 01/02/18 05:55 Anion Gap 8 (8-16) 01/02/18 05:55 BUN 33 mg/dL (7-18) H D 01/02/18 05:55 Creatinine 1.7 mg/dL (0.7-1.3) H 01/02/18 05:55 Creat Clearance w eGFR 38.14 (>60) 01/02/18 05:55 Random Glucose 112 mg/dL (74-106) H D 01/02/18 05:55 Calcium 7.8 mg/dL (8.5-10.1) L 01/02/18 05:55 Total Bilirubin 0.5 mg/dL (0.2-1.0) 01/02/18 05:55 AST 47 U/L (15-37) H D 01/02/18 05:55 ALT 31 U/L (12-78) D 01/02/18 05:55 Alkaline Phosphatase 56 U/L (45-117) 01/02/18 05:55 Total Protein 7.0 g/dl (6.4-8.2) 01/02/18 05:55 Albumin 3.1 g/dl (3.4-5.0) L 01/02/18 05:55 CARDIAC ENZYMES Creatine Kinase 293 IU/L (39-308) 01/01/18 08:11 Troponin I 0.05 ng/ml (0.00-0.05) D 01/01/18 08:11 Current Medications Generic Name Dose Route Start Last Admin Trade Name Freq PRN Reason Stop Dose Admin Acetaminophen 1,000 mg 01/01/18 15:10 01/01/18 16:06 Ofirmev Injection - IVPB 1,000 mg Q8H PRN Administration FEVER Amlodipine Besylate 5 mg 01/01/18 10:00 01/03/18 09:04 Norvasc - PO 5 mg DAILY [facility] Administration Aspirin 81 mg 01/01/18 10:00 01/03/18 09:04 Asa - PO 81 mg DAILY [facility] Administration Azithromycin 500 mg 01/01/18 10:00 01/03/18 09:05 Zithromax - PO 500 mg DAILY [facility] Administration Clopidogrel Bisulfate 75 mg 01/01/18 10:00 01/03/18 09:04 Plavix - PO 75 mg DAILY [facility] Administration Furosemide 20 mg 01/01/18 14:00 01/03/18 13:29 Lasix - PO 20 mg BIDLASIX [facility] Administration Heparin Sodium (Porcine) 5,000 unit 01/01/18 14:00 01/03/18 13:29 Heparin - SQ 5,000 unit TID [facility] Administration CEFTRIAXONE 1 G/50 ML PREMIX 50 mls @ 100 mls/hr 01/01/18 10:00 01/03/18 09: 04 Ceftriaxone 1 Gm-D5w Bag IVPB 100 mls/hr DAILY [facility] Administration Insulin Aspart 0 vial 01/01/18 07:00 01/03/18 16:22 Novolog Vial Sliding Scale - SQ Not Given ACHS [facility] Protocol Losartan Potassium 100 mg 01/01/18 10:00 01/03/18 09:04 Cozaar - PO 100 mg DAILY [facility] Administration Metoprolol Tartrate 50 mg 01/01/18 10:00 01/03/18 09:04 Lopressor - PO 50 mg DAILY [facility] Administration Oseltamivir Phosphate 30 mg 01/01/18 10:00 01/03/18 09:06 Tamiflu - PO 01/06/18 09:59 30 mg BID [facility] Administration Rosuvastatin Calcium 2.5 mg 01/01/18 10:00 01/03/18 09:06 Crestor - PO 2.5 mg DAILY [facility] Administration Home Medications Medication Instructions Recorded Amlodipine Besylate 5 mg PO DAILY 12/31/17 Aspirin [ASA -] 81 mg PO DAILY 12/31/17 Clopidogrel Bisulfate [Clopidogrel] 75 mg PO DAILY 12/31/17 Furosemide 20 mg PO BID 12/31/17 Glimepiride 1 mg PO BID 12/31/17 Linagliptin [Tradjenta] 5 mg PO DAILY 12/31/17 Losartan Potassium 100 mg PO DAILY 12/31/17 Metoprolol Tartrate 50 mg PO DAILY 12/31/17 [place]-3 Fatty Acids [[place]-3] 1,000 mg PO DAILY 12/31/17 Rosuvastatin Calcium [Crestor] 2.5 mg PO DAILY 12/31/17 Oseltamivir Phosphate [Tamiflu] 75 mg PO BID #10 capsule 01/01/18 Microbiology 12/31/17 23:00 Blood - Peripheral Venous Blood Culture - Final Streptococcus Pneumoniae 12/31/17 23:00 Blood - Peripheral Venous Blood Culture - Final Streptococcus Pneumoniae 12/31/17 22:43 Urine - Urine Clean Catch Urine Culture - Final Pseudomonas Aeruginosa 01/01/18 16:20 Nasopharyngeal Swab Influenza Types A,B Antigen (JOHN) - Preliminary 01/01/18 16:20 Nasopharyngeal Swab - Preliminary 01/02/18 08:35 Blood - Peripheral Venous Blood Culture - Preliminary NO GROWTH OBTAINED AFTER 24 HOURS, INCUBATION TO CONTINUE FOR 4 DAYS. 01/02/18 05:55 Blood - Peripheral Venous Blood Culture - Preliminary NO GROWTH OBTAINED AFTER 24 HOURS, INCUBATION TO CONTINUE FOR 4 DAYS. 01/01/18 10:17 Urine - Urine Clean Catch Legionella Antigen - Final 01/01/18 10:17 Urine - Urine Clean Catch Streptococcus pneumoniae Antigen ( M - Final A/P: Patient is a 87 year old male with a history of AVR recently, [place], HTN, HLD, carotid stenosis, CKD, DM, vocal chord malignancy, anemia, is admitted to the hospital s/p fall with possible syncopal episode and fevers/chills with crackles on exam suggestive of pneumonia and influenza # Strept.Pneumonia bacteremia continue IV antibiotic Rocephin and zithromax , sensitive to Rocephin #Acute Pneumonia /infuenza continue tamiflu 30mg po bid renally dosed. #[place]: positive for mild elevation of Troponin 0.02-->0.02--> 0.05 , continue ASA , plavix #HTN Uncontrolled: with elevated BNP on LAsix 20mg po bid, amlodipine, losartan , lasix, lopressor #T2DM continue Ss, with BGms # CKD : stable Prophylaxis DVT: heparin Visit type - Emergency Visit Emergency Visit: Yes ED Registration Date: 01/01/18 Care time: The patient presented to the Emergency Department on the above date and was hospitalized for further evaluation of their emergent condition. - New Patient This patient is new to me today: No - Critical Care Critical Care patient: No - Discharge Referral Referred to [facility] Med [facility].: No
[2018-01-04] MEDS: INSULIN SLIDING SCALE (NOVOLOG) 1 VIAL SQ SCH ×4 (06:02→21:11)
[2018-01-04] MEDS: FUROSEMIDE 20 MG TABLET (FP) PO SCH ×2 (06:03→13:00)
[2018-01-04] MEDS: HEPARIN NA (PORCINE) 5,000 UNITS/ML 1ML VIAL SQ SCH ×3 (06:03→21:02)
[2018-01-04] MEDS ORDERED: PT OWN MED DRAWER 7, Y5N ONE ×3 (09:24→16:32)
[2018-01-04] MEDS: CEFTRIAXONE 1 G/50 ML PREMIX 50 ML IVPB SCH (09:31)
[2018-01-04] MEDS: amLODIPine BESYLATE 5 MG TABLET (FP) PO SCH (09:32)
[2018-01-04] MEDS: METOPROLOL TARTRATE 50 MG TABLET (FP) PO SCH (09:32)
[2018-01-04] MEDS: LOSARTAN POTASSIUM 50 MG TABLET (FP) PO SCH (09:32)
[2018-01-04] MEDS: ASPIRIN 81 MG CHEWABLE TABLETS PO SCH (09:32)
[2018-01-04] MEDS: CLOPIDOGREL BISULFATE 75 MG TABLET (FP) PO SCH (09:32)
[2018-01-04] MEDS: AZITHROMYCIN 250 MG TABLET PO SCH (09:33)
[2018-01-04] MEDS: ROSUVASTATIN CA 5 MG TABLET (FP) PO SCH (09:33)
[2018-01-04] MEDS: OSELTAMIVIR PHOSPHATE 30 MG CAPSULE PO SCH ×2 (09:33→21:02)
--- NOTE | 2018-01-04 10:56 | PN ---
Physical Exam: SUBJECTIVE: Patient seen and examined at bedside. Patient is sitting in a chair in no acute distress. Patient states that his breathing has improved, that he doesn't feel feverish and has no chest pain. OBJECTIVE: Vital Signs Period Temp Pulse Resp BP Sys/Dobson Pulse Ox Last 24 Hr 97.7 F-98.3 F 58-96 18-18 122-151/55-78 100-100 GENERAL: Awake, alert, and fully oriented, in no acute distress. LUNGS: Breath sounds equal, clear to auscultation bilaterally. mild, b/l crackles noted on exam HEART: Regular rate and rhythm, normal S1 and S2 without murmur, rub or gallop. ABDOMEN: Soft, nontender, not distended, normoactive bowel sounds, no guarding, no rebound, no masses. No hepatomegaly or splenomegaly. MUSCULOSKELETAL: Normal range of motion at all joints. No bony deformities or tenderness. No CVA tenderness. UPPER EXTREMITIES: 2+ pulses, warm, well-perfused. No cyanosis. No clubbing. No peripheral edema. LOWER EXTREMITIES: 2+ pulses, warm, well-perfused. No calf tenderness. No peripheral edema. still has some discoloration of b/l lower extremities NEUROLOGICAL: Cranial nerves II-XII intact. Normal speech. Normal gait. PSYCHIATRIC: Cooperative. Good eye contact. Appropriate mood and affect. SKIN: Warm, dry, normal turgor, no rashes or lesions noted, normal capillary refill. Laboratory Results - last 24 hr 01/03/18 01/03/18 11:10 16:08 POC Glucometer 264 106 Active Medications Generic Name Dose Route Start Last Admin Trade Name Heather PRN Reason Stop Dose Admin Acetaminophen 1,000 mg 01/01/18 15:10 01/01/18 16:06 Ofirmev Injection - IVPB 1,000 mg Q8H PRN Administration FEVER Amlodipine Besylate 5 mg 01/01/18 10:00 01/04/18 09:32 Norvasc - PO 5 mg DAILY [facility] Administration Aspirin 81 mg 01/01/18 10:00 01/04/18 09:32 Asa - PO 81 mg DAILY [facility] Administration Azithromycin 500 mg 01/01/18 10:00 01/04/18 09:33 Zithromax - PO 500 mg DAILY [facility] Administration Clopidogrel Bisulfate 75 mg 01/01/18 10:00 01/04/18 09:32 Plavix - PO 75 mg DAILY [facility] Administration Furosemide 20 mg 01/01/18 14:00 01/04/18 06:03 Lasix - PO 20 mg BIDLASIX [facility] Administration Heparin Sodium (Porcine) 5,000 unit 01/01/18 14:00 01/04/18 06:03 Heparin - SQ 5,000 unit TID [facility] Administration CEFTRIAXONE 1 G/50 ML PREMIX 50 mls @ 100 mls/hr 01/01/18 10:00 01/04/18 09: 31 Ceftriaxone 1 Gm-D5w Bag IVPB 100 mls/hr DAILY [facility] Administration Insulin Aspart 0 vial 01/01/18 07:00 01/04/18 06:02 Novolog Vial Sliding Scale - SQ Not Given ACHS [facility] Protocol Losartan Potassium 100 mg 01/01/18 10:00 01/04/18 09:32 Cozaar - PO 100 mg DAILY [facility] Administration Metoprolol Tartrate 50 mg 01/01/18 10:00 01/04/18 09:32 Lopressor - PO 50 mg DAILY [facility] Administration Oseltamivir Phosphate 30 mg 01/01/18 10:00 01/04/18 09:33 Tamiflu - PO 01/06/18 09:59 30 mg BID [facility] Administration Rosuvastatin Calcium 2.5 mg 01/01/18 10:00 01/04/18 09:33 Crestor - PO 2.5 mg DAILY [facility] Administration ASSESSMENT/PLAN: 87 year old male with a history of AV replacement recently, [place], HTN, HLD, carotid stenosis, CKD, DM, vocal chord malignancy, anemia, is admitted to the hospital s/p fall with possible syncopal episode and fevers/chills with crackles on exam suggestive of pneumonia #Respiratory Infection: 2/2 pneumonia -blood cultures are positive for Strep Pneumo -pt is on day 3 of ceftriaxone - will continue ceftriaxone -Day 3 zithromax - can DC zithromax -continue day 3 tamiflu -tamiflu given -ceftriaxone 1g QD #Syncope: unclear if truly syncopized -telemetry -lipid panel normal -echo shows impaired relaxation, EF > 70% -carotid duplex negative for stenosis -Dr. Gates/Laurie/Supriya consult appreciated cardiology #[place]: stable -continue ASA, plavix #HTN: stable -amlodipine, losartan, lasix, lopressor -monitor BP in AM #DM: stable -bgms -ISS #CKD: patient is at baseline -lasix 20mg PO BID #FEN -No standing fluids, encourage PO intake -electrolytes within normal limits, Cre at baseline -diabetic diet #Prophylaxis -heparin 5000 subq TID #Disposition -continue to monitor on tele -dispo planning Visit type - Emergency Visit Emergency Visit: No - New Patient This patient is new to me today: No - Critical Care Critical Care patient: No
--- NOTE | 2018-01-04 11:38 | PN ---
Progress Note, Physician Chief Complaint: Not in distress History of Present Illness: Patient was seen and examined. Awake and alert. Chart was reviewed Denies chest pain, SOB or palpitations - Current Medication List Current Medications: Active Medications Acetaminophen (Ofirmev Injection -) 1,000 mg IVPB Q8H PRN PRN Reason: FEVER Last Admin: 01/01/18 16:06 Dose: 1,000 mg Amlodipine Besylate (Norvasc -) 5 mg PO DAILY [facility] Last Admin: 01/04/18 09:32 Dose: 5 mg Aspirin (Asa -) 81 mg PO DAILY [facility] Last Admin: 01/04/18 09:32 Dose: 81 mg Clopidogrel Bisulfate (Plavix -) 75 mg PO DAILY [facility] Last Admin: 01/04/18 09:32 Dose: 75 mg Furosemide (Lasix -) 20 mg PO BIDLASIX [facility] Last Admin: 01/04/18 06:03 Dose: 20 mg Heparin Sodium (Porcine) (Heparin -) 5,000 unit SQ TID [facility] Last Admin: 01/04/18 06:03 Dose: 5,000 unit CEFTRIAXONE 1 G/50 ML PREMIX (Ceftriaxone 1 Gm-D5w Bag) 50 mls @ 100 mls/hr IVPB DAILY [facility] Last Admin: 01/04/18 09:31 Dose: 100 mls/hr Insulin Aspart (Novolog Vial Sliding Scale -) 0 vial SQ ACHS [facility] PRN Reason: Protocol Last Admin: 01/04/18 06:02 Dose: Not Given Losartan Potassium (Cozaar -) 100 mg PO DAILY [facility] Last Admin: 01/04/18 09:32 Dose: 100 mg Metoprolol Tartrate (Lopressor -) 50 mg PO DAILY [facility] Last Admin: 01/04/18 09:32 Dose: 50 mg Oseltamivir Phosphate (Tamiflu -) 30 mg PO BID [facility] Stop: 01/06/18 09:59 Last Admin: 01/04/18 09:33 Dose: 30 mg Rosuvastatin Calcium (Crestor -) 2.5 mg PO DAILY [facility] Last Admin: 01/04/18 09:33 Dose: 2.5 mg - Objective Vital Signs: Vital Signs Temperature 98 F 01/04/18 08:00 Pulse Rate 76 01/04/18 08:00 Respiratory Rate 18 01/04/18 08:00 Blood Pressure 144/78 01/04/18 08:00 O2 Sat by Pulse Oximetry (%) 100 02/20/18 09:00 Constitutional: Yes: Well Nourished Eyes: Yes: Conjunctiva Clear, PERRL HENT: Yes: Atraumatic Neck: Yes: Supple Cardiovascular: Yes: Regular Rate and Rhythm, S1, S2 Respiratory: Yes: Diminished Gastrointestinal: Yes: Normal Bowel Sounds, Soft. No: Tenderness Edema: No Additional Findings/Remarks: - Review of Systems Constitutional: denies: Fever. denies: Chills Cardiovascular: denies: Chest Pain, Palpitations, Shortness of Breath Respiratory: denies: Cough, Hemoptysis, Orthopnea, PND, SOB, SOB on Exertion Genitourinary: denies: Dysuria, Hematuria Neurological: reports: Dizziness, Syncope. denies: Confusion, Headache, Seizure , Unsteady Gait, Weakness Labs: CBC, BMP 01/02/18 05:55 01/02/18 05:55 INR, PTT INR 1.08 (0.82-1.09) 12/31/17 22:43 Problem List - Problems (1) S/P TAVR (transcatheter aortic valve replacement) Code(s): Z95.2 - PRESENCE OF PROSTHETIC HEART VALVE (2) Syncope Code(s): R55 - SYNCOPE AND COLLAPSE Qualifiers: Syncope type: vasovagal syncope Qualified Code(s): R55 - Syncope and collapse (3) Aortic stenosis Code(s): I35.0 - NONRHEUMATIC AORTIC (VALVE) STENOSIS Qualifiers: Cardiac valve disease etiology: nonrheumatic Qualified Code(s): I35.0 - Nonrheumatic aortic (valve) stenosis (4) CAD (coronary artery disease) Code(s): I25.10 - ATHSCL HEART DISEASE OF [place] CORONARY ARTERY W/O ANG PCTRS Qualifiers: Coronary Disease-Associated Artery/Lesion type: [place] artery [place] vs. transplanted heart: [place] heart Associated angina: without angina Qualified Code(s): I25.10 - Atherosclerotic heart disease of [place] coronary artery without angina pectoris (5) CKD (chronic kidney disease) Code(s): N18.9 - CHRONIC KIDNEY DISEASE, UNSPECIFIED Qualifiers: Chronic kidney disease stage: stage 2 (mild) Qualified Code(s): N18.2 - Chronic kidney disease, stage 2 (mild) (6) Carotid artery disease Code(s): I77.9 - DISORDER OF ARTERIES AND ARTERIOLES, UNSPECIFIED (7) Diabetes mellitus Code(s): E11.9 - TYPE 2 DIABETES MELLITUS WITHOUT COMPLICATIONS Qualifiers: Diabetes mellitus type: type 2 Diabetes mellitus complication status: without complication (8) HTN (hypertension) Code(s): I10 - ESSENTIAL (PRIMARY) HYPERTENSION Qualifiers: Hypertension type: essential hypertension Qualified Code(s): I10 - Essential (primary) hypertension (9) History of percutaneous coronary intervention Code(s): Z98.89 - OTHER SPECIFIED POSTPROCEDURAL STATES * DO NOT USE * (10) Hx of CABG Code(s): Z95.1 - PRESENCE OF AORTOCORONARY BYPASS GRAFT (11) Hypercholesterolemia Code(s): E78.0 - PURE HYPERCHOLESTEROLEMIA * DO NOT USE * Assessment/Plan 1. Possible near syncope - vasovagal 2. Possible Influenza +/- pneumonia + strep bacteremia 3. Post TAVR for aortic valve stenosis 4. CAD s/p CABG, PCI/stent, angina pectoris 5. Hypertension/hypertensive cardiovascular disease 6. Hypercholesterolemia 7. Diabetes mellitus and diabetic neuropathy 8. History of vocal cord malignancy PLAN: 1. Continue telemetry monitoring 2. Continue Metoprolol, Losartan and Amlodipine 3. Continue ASA and Plavix 4. Continue Furosemide 5. Continue Crestor 6. Empiric antibiotic coverage and Tamiflu 7. Transthoracic echocardiography revealed normal left ventricular systolic function, TAVR well seated with normal function, impaired relaxation with elevated filling pressure and mild TR Further plans are to follow Gallo Epps MD
--- NOTE | 2018-01-04 13:44 | PN ---
Progress Note, Physician History of Present Illness: no complaints feels better very unhappy wants to go home patients cx have come back in urine one in blood and one in urine repeat blood cx is negative - Current Medication List Current Medications: Active Medications Acetaminophen (Ofirmev Injection -) 1,000 mg IVPB Q8H PRN PRN Reason: FEVER Last Admin: 01/01/18 16:06 Dose: 1,000 mg Amlodipine Besylate (Norvasc -) 5 mg PO DAILY [facility] Last Admin: 01/04/18 09:32 Dose: 5 mg Aspirin (Asa -) 81 mg PO DAILY [facility] Last Admin: 01/04/18 09:32 Dose: 81 mg Clopidogrel Bisulfate (Plavix -) 75 mg PO DAILY [facility] Last Admin: 01/04/18 09:32 Dose: 75 mg Furosemide (Lasix -) 20 mg PO BIDLASIX [facility] Last Admin: 01/04/18 13:00 Dose: 20 mg Heparin Sodium (Porcine) (Heparin -) 5,000 unit SQ TID [facility] Last Admin: 01/04/18 13:00 Dose: 5,000 unit Piperacillin/Tazobactam/Dextrose (Zosyn 2.25gm Ivpb (Premix)) 2.25 gm in 50 mls @ 100 mls/hr IVPB Q8H-IV [facility] PRN Reason: Protocol Insulin Aspart (Novolog Vial Sliding Scale -) 0 vial SQ ACHS R[facility]QUEL PRN Reason: Protocol Last Admin: 01/04/18 12:05 Dose: 2 units Losartan Potassium (Cozaar -) 100 mg PO DAILY [facility] Last Admin: 01/04/18 09:32 Dose: 100 mg Metoprolol Tartrate (Lopressor -) 50 mg PO DAILY [facility] Last Admin: 01/04/18 09:32 Dose: 50 mg Oseltamivir Phosphate (Tamiflu -) 30 mg PO BID [facility] Stop: 01/06/18 09:59 Last Admin: 01/04/18 09:33 Dose: 30 mg Rosuvastatin Calcium (Crestor -) 2.5 mg PO DAILY [facility] Last Admin: 01/04/18 09:33 Dose: 2.5 mg - Objective Vital Signs: Vital Signs Temperature 98 F 01/04/18 08:00 Pulse Rate 58 L 01/04/18 12:00 Respiratory Rate 18 01/04/18 12:00 Blood Pressure 121/62 01/04/18 12:00 O2 Sat by Pulse Oximetry (%) 100 01/04/18 09:00 Constitutional: Yes: No Distress, Calm Cardiovascular: Yes: S1, S2 Respiratory: Yes: Regular, Poor Air Entry Gastrointestinal: Yes: Normal Bowel Sounds, Soft Musculoskeletal: Yes: WNL Extremities: Yes: WNL Neurological: Yes: Alert, Oriented Psychiatric: Yes: Alert, Oriented Labs: CBC, BMP 01/02/18 05:55 01/02/18 05:55 INR, PTT INR 1.08 (0.82-1.09) 12/31/17 22:43 Assessment/Plan Problem List - Problems (1) H/O aortic valve replacement Code(s): Z95.2 - PRESENCE OF PROSTHETIC HEART VALVE (2) Aortic stenosis Code(s): I35.0 - NONRHEUMATIC AORTIC (VALVE) STENOSIS Qualifiers: Cardiac valve disease etiology: etiology unspecified Qualified Code(s): I35.0 - Nonrheumatic aortic (valve) stenosis (3) CAD (coronary artery disease) Code(s): I25.10 - ATHSCL HEART DISEASE OF [place] CORONARY ARTERY W/O ANG PCTRS Qualifiers: Coronary Disease-Associated Artery/Lesion type: [place] artery [place] vs. transplanted heart: [place] heart Associated angina: without angina Qualified Code(s): I25.10 - Atherosclerotic heart disease of [place] coronary artery without angina pectoris (4) CKD (chronic kidney disease) Code(s): N18.9 - CHRONIC KIDNEY DISEASE, UNSPECIFIED Qualifiers: Chronic kidney disease stage: stage 2 (mild) Qualified Code(s): N18.2 - Chronic kidney disease, stage 2 (mild) (5) HTN (hypertension) Code(s): I10 - ESSENTIAL (PRIMARY) HYPERTENSION Qualifiers: Hypertension type: essential hypertension (6) Hx of CABG Code(s): Z95.1 - PRESENCE OF AORTOCORONARY BYPASS GRAFT uti Assessment/Plan 87 y.o. male with PMH of CAD s/p CABG, PCI s/p stent, aortic valve replacement, CKD, HTN presenting with fever/chills and cough, episode of dizziness without LOC Gram + Bacteremia Possible Influenza PNA plan will change to zosyn from ceftriaxone rest continue current mgmt complete tamiflu rest as per primary team
[2018-01-04] MEDS: PIPERACILLIN/TAZOB 2.25 GM 2.25 GM/50 ML BAG IVPB SCH ×2 (15:08→19:00)
--- NOTE | 2018-01-04 16:32 | PN ---
Teaching Attending Note Name of Resident: Westley Monahan ATTENDING PHYSICIAN STATEMENT I saw and evaluated the patient. I reviewed the resident's note and discussed the case with the resident. I agree with the resident's findings and plan as documented. SUBJECTIVE: Patient is comfortable with no acute distress, feeling better OBJECTIVE: Vital Signs Temperature 98.3 F 01/04/18 14:00 Pulse Rate 54 L 01/04/18 14:00 Respiratory Rate 20 01/04/18 14:00 Blood Pressure 115/52 01/04/18 14:00 O2 Sat by Pulse Oximetry (%) 100 01/04/18 09:00 GENERAL: Awake, alert, and fully oriented, in no acute distress. HEAD: Normal with no signs of trauma. EYES: Pupils equal, round and reactive to light, extraocular movements intact, sclera anicteric, conjunctiva clear. EARS, NOSE, THROAT: Ears normal, oropharynx clear without exudates. Moist mucous membranes. NECK: Normal range of motion, supple without lymphadenopathy, JVD, or masses. LUNGS: Breath sounds equal, breath sounds decreased BL HEART: Regular rate and rhythm, normal S1 and S2 POSITIVE . ABDOMEN: Soft, nontender, not distended, normoactive bowel sounds, no guarding, no rebound, no masses. EXTREMITIES: 2+ pulses, warm, well-perfused. No cyanosis. No clubbing. No peripheral edema. chronic venous stasis changes NEUROLOGICAL: Cranial nerves II-XII intact. Normal speech. SKIN: Warm, dry, normal turgor, no rashes or lesions noted, normal capillary refill. CBCD WBC 7.6 K/mm3 (4.0-10.0) 01/02/18 05:55 RBC 4.04 M/mm3 (4.00-5.60) 01/02/18 05:55 Hgb 11.9 GM/dL (11.7-16.9) 01/02/18 05:55 Hct 34.8 % (35.4-49) L 01/02/18 05:55 MCV 86.1 fl (80-96) 01/02/18 05:55 MCHC 34.3 g/dl (32.0-35.9) 01/02/18 05:55 RDW 13.2 % (11.9-15.9) 01/02/18 05:55 Plt Count 128 K/MM3 (134-434) L 01/02/18 05:55 MPV 8.3 fl (7.5-11.1) 01/02/18 05:55 CMP Sodium 137 mmol/L (136-145) 01/02/18 05:55 Potassium 3.8 mmol/L (3.5-5.1) 01/02/18 05:55 Chloride 100 mmol/L (98-107) 01/02/18 05:55 Carbon Dioxide 29 mmol/L (21-32) 01/02/18 05:55 Anion Gap 8 (8-16) 01/02/18 05:55 BUN 33 mg/dL (7-18) H D 01/02/18 05:55 Creatinine 1.7 mg/dL (0.7-1.3) H 01/02/18 05:55 Creat Clearance w eGFR 38.14 (>60) 01/02/18 05:55 Random Glucose 112 mg/dL (74-106) H D 01/02/18 05:55 Calcium 7.8 mg/dL (8.5-10.1) L 01/02/18 05:55 Total Bilirubin 0.5 mg/dL (0.2-1.0) 01/02/18 05:55 AST 47 U/L (15-37) H D 01/02/18 05:55 ALT 31 U/L (12-78) D 01/02/18 05:55 Alkaline Phosphatase 56 U/L (45-117) 01/02/18 05:55 Total Protein 7.0 g/dl (6.4-8.2) 01/02/18 05:55 Albumin 3.1 g/dl (3.4-5.0) L 01/02/18 05:55 CARDIAC ENZYMES Creatine Kinase 293 IU/L (39-308) 01/01/18 08:11 Troponin I 0.05 ng/ml (0.00-0.05) D 01/01/18 08:11 Current Medications Generic Name Dose Route Start Last Admin Trade Name Freq PRN Reason Stop Dose Admin Acetaminophen 1,000 mg 01/01/18 15:10 01/01/18 16:06 Ofirmev Injection - IVPB 1,000 mg Q8H PRN Administration FEVER Amlodipine Besylate 5 mg 01/01/18 10:00 01/04/18 09:32 Norvasc - PO 5 mg DAILY [facility]ACQUEL Administration Aspirin 81 mg 01/01/18 10:00 01/04/18 09:32 Asa - PO 81 mg DAILY [facility] Administration Clopidogrel Bisulfate 75 mg 01/01/18 10:00 01/04/18 09:32 Plavix - PO 75 mg DAILY [facility] Administration Furosemide 20 mg 01/01/18 14:00 01/04/18 13:00 Lasix - PO 20 mg BIDLASIX [facility] Administration Heparin Sodium (Porcine) 5,000 unit 01/01/18 14:00 01/04/18 13:00 Heparin - SQ 5,000 unit TID [facility] Administration Piperacillin/Tazobactam/Dextrose 2.25 gm in 50 mls @ 100 mls/hr 01/04/18 14: 00 01/04/18 15:08 Zosyn 2.25gm Ivpb (Premix) IVPB 100 mls/hr Q8H-IV [facility]ACQUEL Administration Protocol Insulin Aspart 0 vial 01/01/18 07:00 01/04/18 12:05 Novolog Vial Sliding Scale - SQ 2 units ACHS R[facility]QUEL Administration Protocol Losartan Potassium 100 mg 01/01/18 10:00 01/04/18 09:32 Cozaar - PO 100 mg DAILY [facility] Administration Metoprolol Tartrate 50 mg 01/01/18 10:00 01/04/18 09:32 Lopressor - PO 50 mg DAILY [facility] Administration Oseltamivir Phosphate 30 mg 01/01/18 10:00 01/04/18 09:33 Tamiflu - PO 01/06/18 09:59 30 mg BID [facility] Administration Rosuvastatin Calcium 2.5 mg 01/01/18 10:00 01/04/18 09:33 Crestor - PO 2.5 mg DAILY [facility] Administration Home Medications Medication Instructions Recorded Amlodipine Besylate 5 mg PO DAILY 12/31/17 Aspirin [ASA -] 81 mg PO DAILY 12/31/17 Clopidogrel Bisulfate [Clopidogrel] 75 mg PO DAILY 12/31/17 Furosemide 20 mg PO BID 12/31/17 Glimepiride 1 mg PO BID 12/31/17 Linagliptin [Tradjenta] 5 mg PO DAILY 12/31/17 Losartan Potassium 100 mg PO DAILY 12/31/17 Metoprolol Tartrate 50 mg PO DAILY 12/31/17 [place]-3 Fatty Acids [[place]-3] 1,000 mg PO DAILY 12/31/17 Rosuvastatin Calcium [Crestor] 2.5 mg PO DAILY 12/31/17 Oseltamivir Phosphate [Tamiflu] 75 mg PO BID #10 capsule 01/01/18 Microbiology 01/02/18 08:35 Blood - Peripheral Venous Blood Culture - Preliminary NO GROWTH OBTAINED AFTER 48 HOURS, INCUBATION TO CONTINUE FOR 3 DAYS. 01/02/18 05:55 Blood - Peripheral Venous Blood Culture - Preliminary NO GROWTH OBTAINED AFTER 48 HOURS, INCUBATION TO CONTINUE FOR 3 DAYS. 12/31/17 23:00 Blood - Peripheral Venous Blood Culture - Final Streptococcus Pneumoniae 12/31/17 23:00 Blood - Peripheral Venous Blood Culture - Final Streptococcus Pneumoniae 12/31/17 22:43 Urine - Urine Clean Catch Urine Culture - Final Pseudomonas Aeruginosa 01/01/18 16:20 Nasopharyngeal Swab Influenza Types A,B Antigen (JOHN) - Preliminary 01/01/18 16:20 Nasopharyngeal Swab - Preliminary 01/01/18 10:17 Urine - Urine Clean Catch Legionella Antigen - Final 01/01/18 10:17 Urine - Urine Clean Catch Streptococcus pneumoniae Antigen ( M - Final ASSESSMENT AND PLAN: Patient is a 87 year old male with a history of AVR recently, [place], HTN, HLD, carotid stenosis, CKD, DM, vocal chord malignancy, anemia, is admitted to the hospital s/p fall with possible syncopal episode and fevers/chills with crackles on exam suggestive of pneumonia and influenza # Strept.Pneumonia bacteremia On IV zosyn now as per ID now s/p IV antibiotic Rocephin and zithromax . # Urine culture positive for Pseudomonas Aeruginosa IV antibiotic was changed to Zosyn from Rocephin #Infuenza continue tamiflu 30mg po bid renally dosed for one more day. # Mild elevation of Troponin: positive for mild elevation of Troponin 0.02--> 0.02--> 0.05 , continue ASA, plavix #HTN Uncontrolled: with elevated BNP on LAsix 20mg po bid, amlodipine, losartan , lasix, lopressor #T2DM continue Ss, with BGms # CKD : stable Prophylaxis DVT: heparin
[2018-01-05] MEDS ORDERED: PT OWN MED DRAWER 7, Y5N ONE ×3 (02:12→11:14)
[2018-01-05] MEDS: PIPERACILLIN/TAZOB 2.25 GM 2.25 GM/50 ML BAG IVPB SCH ×3 (02:13→17:42)
[2018-01-05] MEDS: FUROSEMIDE 20 MG TABLET (FP) PO SCH ×2 (06:32→14:38)
[2018-01-05] MEDS: HEPARIN NA (PORCINE) 5,000 UNITS/ML 1ML VIAL SQ SCH ×3 (06:32→21:43)
[2018-01-05] MEDS: INSULIN SLIDING SCALE (NOVOLOG) 1 VIAL SQ SCH ×4 (06:33→21:49)
[2018-01-05 07:07] LABS: HEMATOCRIT 34.5 % (35.4-49); HEMOGLOBIN 11.4 GM/dL (11.7-16.9); MCH 28.5 pg (25.7-33.7); MCHC 33.2 g/dl (32.0-35.9); MEAN CELL VOLUME 85.9 fl (80-96); MEAN PLT VOLUME 8.2 fl (7.5-11.1); PLATELET COUNT 160 K/MM3 (134-434); RBC 4.01 M/mm3 (4.00-5.60); RDW 13.2 % (11.9-15.9); WHITE BLOOD COUNT 6.5 K/mm3 (4.0-10.0)
[2018-01-05 07:54] LABS: ANION GAP 7 (8-16); BLOOD UREA NITROGEN 43 mg/dL (7-18); CHLORIDE 102 mmol/L (98-107); CO2 30 mmol/L (21-32); CREATININE 1.7 mg/dL (0.7-1.3); GLUCOSE,RANDOM 109 mg/dL (74-106); POTASSIUM 3.9 mmol/L (3.5-5.1); SODIUM 139 mmol/L (136-145)
[2018-01-05] MEDS: METOPROLOL TARTRATE 50 MG TABLET (FP) PO SCH (09:38)
[2018-01-05] MEDS: ASPIRIN 81 MG CHEWABLE TABLETS PO SCH (09:38)
[2018-01-05] MEDS: OSELTAMIVIR PHOSPHATE 30 MG CAPSULE PO SCH ×2 (09:38→21:43)
[2018-01-05] MEDS: CLOPIDOGREL BISULFATE 75 MG TABLET (FP) PO SCH (09:39)
[2018-01-05] MEDS: LOSARTAN POTASSIUM 50 MG TABLET (FP) PO SCH (09:39)
[2018-01-05] MEDS: amLODIPine BESYLATE 5 MG TABLET (FP) PO SCH (09:39)
[2018-01-05] MEDS: ROSUVASTATIN CA 5 MG TABLET (FP) PO SCH (09:39)
[2018-01-05] MEDS ORDERED: PICC LINE 8 ML FLUSH PROTOCOL IVPUSH PRN (13:17)
--- NOTE | 2018-01-05 14:10 | PN ---
Progress Note (short form) - Note Progress Note: PULMONARY Denies shortness of breath, cough or wheezing. No fevers or chills. Last Vital Signs Temp Pulse Resp BP Pulse Ox 98.6 F 82 16 114/58 100 01/05/18 13:43 01/05/18 13:43 01/05/18 13:43 01/05/18 13:43 01/05/18 09:00 Gen: NAD in chair Heart: RRR Lung: bibasilar rales R>L Abd: soft, nontender Ext: chronic changes, trace edema CBC, BMP 01/05/18 06:45 01/05/18 06:45 Active Medications Acetaminophen (Ofirmev Injection -) 1,000 mg IVPB Q8H PRN PRN Reason: FEVER Last Admin: 01/01/18 16:06 Dose: 1,000 mg Amlodipine Besylate (Norvasc -) 5 mg PO DAILY [facility] Last Admin: 01/05/18 09:39 Dose: 5 mg Aspirin (Asa -) 81 mg PO DAILY [facility] Last Admin: 01/05/18 09:38 Dose: 81 mg Clopidogrel Bisulfate (Plavix -) 75 mg PO DAILY [facility] Last Admin: 01/05/18 09:39 Dose: 75 mg Furosemide (Lasix -) 20 mg PO BIDLASIX [facility] Last Admin: 01/05/18 06:32 Dose: 20 mg Heparin Sodium (Porcine) (Heparin -) 5,000 unit SQ TID [facility] Last Admin: 01/05/18 06:32 Dose: 5,000 unit IV Flush (Picc Line Flush) 8 ml IVPUSH PRN PRN PRN Reason: Protocol Piperacillin/Tazobactam/Dextrose (Zosyn 2.25gm Ivpb (Premix)) 2.25 gm in 50 mls @ 100 mls/hr IVPB Q8H-IV RACQUEL PRN Reason: Protocol Last Admin: 01/05/18 09:38 Dose: 100 mls/hr Insulin Aspart (Novolog Vial Sliding Scale -) 0 vial SQ ACHS R[facility]QUEL PRN Reason: Protocol Last Admin: 01/05/18 12:21 Dose: 4 units Losartan Potassium (Cozaar -) 100 mg PO DAILY [facility] Last Admin: 01/05/18 09:39 Dose: 100 mg Metoprolol Tartrate (Lopressor -) 50 mg PO DAILY [facility] Last Admin: 01/05/18 09:38 Dose: 50 mg Oseltamivir Phosphate (Tamiflu -) 30 mg PO BID [facility] Stop: 01/06/18 09:59 Last Admin: 01/05/18 09:38 Dose: 30 mg Rosuvastatin Calcium (Crestor -) 2.5 mg PO DAILY [facility] Last Admin: 01/05/18 09:39 Dose: 2.5 mg A/P Pneumonia Strep Bacteremia r/o Influenza CAD s/p CABG s/p TAVR for HTN DM Hypercholesterolemia - antibiotics per ID - complete tamiflu - O2 to keep SpO2 >90% - inhaled bronchodilators as needed - continue cardiac meds - DVT prophylaxis
--- NOTE | 2018-01-05 15:53 | PN ---
Physical Exam: SUBJECTIVE: Patient seen and examined at bedside. No acute complaints. No chest pain, SOB, nausea, vomiting, diarrhea, fevers, chills. OBJECTIVE: Vital Signs Period Temp Pulse Resp BP Sys/Dobson Pulse Ox Last 24 Hr 98 F-98.6 F 59-84 16-20 103-164/54-80 100-100 GENERAL: Awake, alert, and fully oriented, in no acute distress. LUNGS: Breath sounds equal, clear to auscultation bilaterally. bibasilar crackles noted, improved compared to yesterday, improved airflow bilaterally HEART: Regular rate and rhythm, normal S1 and S2, 3/6 systolic murmur recognized on exam, rub or gallop. ABDOMEN: Soft, nontender, not distended, normoactive bowel sounds, no guarding, no rebound, no masses. No hepatomegaly or splenomegaly. MUSCULOSKELETAL: Normal range of motion at all joints. No bony deformities or tenderness. No CVA tenderness. UPPER EXTREMITIES: 2+ pulses, warm, well-perfused. No cyanosis. No clubbing. No peripheral edema. LOWER EXTREMITIES: 2+ pulses, warm, well-perfused. No calf tenderness. No peripheral edema. still has some chronic discoloration of b/l lower extremities NEUROLOGICAL: Cranial nerves II-XII intact. Normal speech. Normal gait. PSYCHIATRIC: Cooperative. Good eye contact. Appropriate mood and affect. SKIN: Warm, dry, normal turgor, no rashes or lesions noted, normal capillary refill. Laboratory Results - last 24 hr 01/04/18 01/04/18 01/04/18 11:37 16:48 21:10 WBC RBC Hgb Hct MCV MCH MCHC RDW Plt Count MPV Sodium Potassium Chloride Carbon Dioxide Anion Gap BUN Creatinine POC Glucometer 170.95832 204.14106 226.04401 Random Glucose Calcium 01/05/18 01/05/18 01/05/18 05:49 06:45 06:45 WBC 6.5 RBC 4.01 Hgb 11.4 L Hct 34.5 L MCV 85.9 MCH 28.5 MCHC 33.2 RDW 13.2 Plt Count 160 D MPV 8.2 Sodium 139 Potassium 3.9 Chloride 102 Carbon Dioxide 30 Anion Gap 7 L BUN 43 H D Creatinine 1.7 H POC Glucometer 130.55955 Random Glucose 109 H Calcium 8.0 L 01/05/18 11:36 WBC RBC Hgb Hct MCV MCH MCHC RDW Plt Count MPV Sodium Potassium Chloride Carbon Dioxide Anion Gap BUN Creatinine POC Glucometer [phone] Random Glucose Calcium Active Medications Generic Name Dose Route Start Last Admin Trade Name Freq PRN Reason Stop Dose Admin Acetaminophen 1,000 mg 01/01/18 15:10 01/01/18 16:06 Ofirmev Injection - IVPB 1,000 mg Q8H PRN Administration FEVER Amlodipine Besylate 5 mg 01/01/18 10:00 01/05/18 09:39 Norvasc - PO 5 mg DAILY [facility] Administration Aspirin 81 mg 01/01/18 10:00 01/05/18 09:38 Asa - PO 81 mg DAILY [facility] Administration Clopidogrel Bisulfate 75 mg 01/01/18 10:00 01/05/18 09:39 Plavix - PO 75 mg DAILY [facility] Administration Furosemide 20 mg 01/01/18 14:00 01/05/18 14:38 Lasix - PO 20 mg BIDLASIX [facility]AC[facility]EL Administration Heparin Sodium (Porcine) 5,000 unit 01/01/18 14:00 01/05/18 14:38 Heparin - SQ 5,000 unit TID RAC[facility]EL Administration IV Flush 8 ml 01/05/18 13:17 Picc Line Flush IVPUSH PRN PRN Protocol Piperacillin/Tazobactam/Dextrose 2.25 gm in 50 mls @ 100 mls/hr 01/04/18 14: 00 01/05/18 09:38 Zosyn 2.25gm Ivpb (Premix) IVPB 100 mls/hr Q8H-IV [facility]ACQUEL Administration Protocol Insulin Aspart 0 vial 01/01/18 07:00 01/05/18 12:21 Novolog Vial Sliding Scale - SQ 4 units ACHS RACQUEL Administration Protocol Losartan Potassium 100 mg 01/01/18 10:00 01/05/18 09:39 Cozaar - PO 100 mg DAILY [facility] Administration Metoprolol Tartrate 50 mg 01/01/18 10:00 01/05/18 09:38 Lopressor - PO 50 mg DAILY [facility] Administration Oseltamivir Phosphate 30 mg 01/01/18 10:00 01/05/18 09:38 Tamiflu - PO 01/06/18 09:59 30 mg BID [facility] Administration Rosuvastatin Calcium 2.5 mg 01/01/18 10:00 01/05/18 09:39 Crestor - PO 2.5 mg DAILY [facility] Administration ASSESSMENT/PLAN: 87 year old male with a history of AV replacement recently, [place], HTN, HLD, carotid stenosis, CKD, DM, vocal chord malignancy, anemia, is admitted to the hospital s/p fall with possible syncopal episode and fevers/chills with crackles on exam suggestive of pneumonia #Respiratory Infection: 2/2 pneumonia -blood cultures are positive for Strep Pneumo -Continue zosyn Q8h day 2 -continue day 4 tamiflu -will need 11 more days of zosyn -Dispo planning for tomorrow at [facility] - will need 10 days of outpatient Abx with zosyn when he arrives at [facility] -Picc line in AM #Urinary Tract Infection: 2/2 pseudomonas -asymptomatic, but could still have contributed to sepsis-like picture on admission -zosyn will cover #Syncope: unclear if truly syncopized -telemetry -lipid panel normal -echo shows impaired relaxation, EF > 70% -carotid duplex negative for stenosis -Dr. Gates/Laurie/Supriya consult appreciated cardiology #KS: stable -continue ASA, plavix #HTN: stable -amlodipine, losartan, lasix, lopressor -monitor BP in AM #DM: stable -bgms -ISS #CKD: patient is at baseline -lasix 20mg PO BID #FEN -No standing fluids, encourage PO intake -electrolytes within normal limits, Cre at baseline -diabetic diet #Prophylaxis -heparin 5000 subq TID #Disposition -continue to monitor on tele -dispo planning for tomorrow Visit type - Emergency Visit Emergency Visit: No - New Patient This patient is new to me today: No - Critical Care Critical Care patient: No
--- NOTE | 2018-01-05 15:59 | PN ---
Progress Note, Physician History of Present Illness: patient feeling much better no complaints - Current Medication List Current Medications: Active Medications Acetaminophen (Ofirmev Injection -) 1,000 mg IVPB Q8H PRN PRN Reason: FEVER Last Admin: 01/01/18 16:06 Dose: 1,000 mg Amlodipine Besylate (Norvasc -) 5 mg PO DAILY [facility] Last Admin: 01/05/18 09:39 Dose: 5 mg Aspirin (Asa -) 81 mg PO DAILY [facility] Last Admin: 01/05/18 09:38 Dose: 81 mg Clopidogrel Bisulfate (Plavix -) 75 mg PO DAILY [facility] Last Admin: 01/05/18 09:39 Dose: 75 mg Furosemide (Lasix -) 20 mg PO BIDLASIX [facility] Last Admin: 01/05/18 14:38 Dose: 20 mg Heparin Sodium (Porcine) (Heparin -) 5,000 unit SQ TID [facility] Last Admin: 01/05/18 14:38 Dose: 5,000 unit IV Flush (Picc Line Flush) 8 ml IVPUSH PRN PRN PRN Reason: Protocol Piperacillin/Tazobactam/Dextrose (Zosyn 2.25gm Ivpb (Premix)) 2.25 gm in 50 mls @ 100 mls/hr IVPB Q8H-IV RACQUEL PRN Reason: Protocol Last Admin: 01/05/18 09:38 Dose: 100 mls/hr Insulin Aspart (Novolog Vial Sliding Scale -) 0 vial SQ ACHS RACQUEL PRN Reason: Protocol Last Admin: 01/05/18 12:21 Dose: 4 units Losartan Potassium (Cozaar -) 100 mg PO DAILY [facility] Last Admin: 01/05/18 09:39 Dose: 100 mg Metoprolol Tartrate (Lopressor -) 50 mg PO DAILY [facility] Last Admin: 01/05/18 09:38 Dose: 50 mg Oseltamivir Phosphate (Tamiflu -) 30 mg PO BID [facility] Stop: 01/06/18 09:59 Last Admin: 01/05/18 09:38 Dose: 30 mg Rosuvastatin Calcium (Crestor -) 2.5 mg PO DAILY [facility] Last Admin: 01/05/18 09:39 Dose: 2.5 mg - Objective Vital Signs: Vital Signs Temperature 98.6 F 01/05/18 13:43 Pulse Rate 82 01/05/18 13:43 Respiratory Rate 16 01/05/18 13:43 Blood Pressure 114/58 01/05/18 13:43 O2 Sat by Pulse Oximetry (%) 100 01/05/18 09:00 Constitutional: Yes: No Distress, Calm Neck: Yes: Supple Cardiovascular: Yes: Regular Rate and Rhythm, S1, S2 Respiratory: Yes: Regular, CTA Bilaterally Gastrointestinal: Yes: Normal Bowel Sounds, Soft Musculoskeletal: Yes: WNL Extremities: Yes: WNL Neurological: Yes: Alert, Oriented Psychiatric: Yes: Alert, Oriented Labs: CBC, BMP 01/05/18 06:45 01/05/18 06:45 INR, PTT INR 1.08 (0.82-1.09) 12/31/17 22:43 Assessment/Plan Problem List - Problems (1) H/O aortic valve replacement Code(s): Z95.2 - PRESENCE OF PROSTHETIC HEART VALVE (2) Aortic stenosis Code(s): I35.0 - NONRHEUMATIC AORTIC (VALVE) STENOSIS Qualifiers: Cardiac valve disease etiology: etiology unspecified Qualified Code(s): I35.0 - Nonrheumatic aortic (valve) stenosis (3) CAD (coronary artery disease) Code(s): I25.10 - ATHSCL HEART DISEASE OF [place] CORONARY ARTERY W/O ANG PCTRS Qualifiers: Coronary Disease-Associated Artery/Lesion type: [place] artery [place] vs. transplanted heart: [place] heart Associated angina: without angina Qualified Code(s): I25.10 - Atherosclerotic heart disease of [place] coronary artery without angina pectoris (4) CKD (chronic kidney disease) Code(s): N18.9 - CHRONIC KIDNEY DISEASE, UNSPECIFIED Qualifiers: Chronic kidney disease stage: stage 2 (mild) Qualified Code(s): N18.2 - Chronic kidney disease, stage 2 (mild) (5) HTN (hypertension) Code(s): I10 - ESSENTIAL (PRIMARY) HYPERTENSION Qualifiers: Hypertension type: essential hypertension (6) Hx of CABG Code(s): Z95.1 - PRESENCE OF AORTOCORONARY BYPASS GRAFT uti Assessment/Plan 87 y.o. male with PMH of CAD s/p CABG, PCI s/p stent, aortic valve replacement, CKD, HTN presenting with fever/chills and cough, episode of dizziness without LOC patient admitted with uti and gm positive bacteremia and invasive pneumococcal pneumonia patient has recent valve placement plan continue zosyn for a total of 14 days rest continue current mgmt watch for fevers rest as per primary team
--- NOTE | 2018-01-05 16:04 | PN ---
Teaching Attending Note Name of Resident: Westley Monahan ATTENDING PHYSICIAN STATEMENT I saw and evaluated the patient. I reviewed the resident's note and discussed the case with the resident. I agree with the resident's findings and plan as documented. SUBJECTIVE: No fever or chills , has no abd pain, feels good , ,no CP , no complaints OBJECTIVE: NAD , AAOx3 CV: RRR, 2/6 SM at base. Lungs: CTAb Ext: no edema ASSESSMENT AND PLAN: 87 y/o man with h/o HTN, [place], AVR, HLP, carotid stenosis , CKD , DM , vocal cord cancer, and anemia . who presented with a fall and was found to have PNA with strep pneumo pneumonia 1- Strep Pneumo- pneumonia , with PNA : repeat cx neg x 72 hr no fever or leukoytosis. - continue abx - duration 2 weeks total after d/w ID - 11 more days - no vegetations o n Echo - cont tamiflu empirically 2- possible pseudomonas UTI: cont zosyn 3- h/o [place] cont ASA , plavix , BB 4- HTN: cont cont lasix , norvasc . metoprolol and losartan 5- CKD : stable cr at base line 6- DM : SSI here dispo : to rehab tomorrow . needs PICCline
--- NOTE | 2018-01-05 18:56 | PN ---
Progress Note (short form) - Note Progress Note: Transthoracic echocardiography revealed normal left ventricular systolic function, TAVR well seated with normal function, impaired relaxation with elevated filling pressure and mild TR 1. Possible near syncope - vasovagal 2. Possible Influenza +/- pneumonia + strep bacteremia 3. Post TAVR for aortic valve stenosis 4. CAD s/p CABG, PCI/stent, angina pectoris 5. Hypertension/hypertensive cardiovascular disease 6. Hypercholesterolemia 7. Diabetes mellitus and diabetic neuropathy 8. History of vocal cord malignancy PLAN: 1. Continue telemetry monitoring 2. Continue Metoprolol 50 qd, Losartan 100 qd and Amlodipine 5 qd 3. Continue ASA 81 qd and Plavix 75 qd 4. Continue Furosemide 20 bid 5. Continue Crestor 2.5 qd 6. Empiric antibiotic coverage and Tamiflu, f/u C&S 7. DVT prophylaxis Problem List - Problems (1) S/P TAVR (transcatheter aortic valve replacement) Code(s): Z95.2 - PRESENCE OF PROSTHETIC HEART VALVE (2) Syncope Code(s): R55 - SYNCOPE AND COLLAPSE Qualifiers: Syncope type: vasovagal syncope Qualified Code(s): R55 - Syncope and collapse (3) Aortic stenosis Code(s): I35.0 - NONRHEUMATIC AORTIC (VALVE) STENOSIS Qualifiers: Cardiac valve disease etiology: nonrheumatic Qualified Code(s): I35.0 - Nonrheumatic aortic (valve) stenosis (4) CAD (coronary artery disease) Code(s): I25.10 - ATHSCL HEART DISEASE OF [place] CORONARY ARTERY W/O ANG PCTRS Qualifiers: Coronary Disease-Associated Artery/Lesion type: [place] artery [place] vs. transplanted heart: [place] heart Associated angina: without angina Qualified Code(s): I25.10 - Atherosclerotic heart disease of [place] coronary artery without angina pectoris (5) CKD (chronic kidney disease) Code(s): N18.9 - CHRONIC KIDNEY DISEASE, UNSPECIFIED Qualifiers: Chronic kidney disease stage: stage 2 (mild) Qualified Code(s): N18.2 - Chronic kidney disease, stage 2 (mild) (6) Carotid artery disease Code(s): I77.9 - DISORDER OF ARTERIES AND ARTERIOLES, UNSPECIFIED (7) Diabetes mellitus Code(s): E11.9 - TYPE 2 DIABETES MELLITUS WITHOUT COMPLICATIONS Qualifiers: Diabetes mellitus type: type 2 Diabetes mellitus complication status: without complication (8) HTN (hypertension) Code(s): I10 - ESSENTIAL (PRIMARY) HYPERTENSION Qualifiers: Hypertension type: essential hypertension Qualified Code(s): I10 - Essential (primary) hypertension (9) History of percutaneous coronary intervention Code(s): Z98.89 - OTHER SPECIFIED POSTPROCEDURAL STATES * DO NOT USE * (10) Hx of CABG Code(s): Z95.1 - PRESENCE OF AORTOCORONARY BYPASS GRAFT (11) Hypercholesterolemia Code(s): E78.0 - PURE HYPERCHOLESTEROLEMIA * DO NOT USE *
--- NOTE | 2018-01-05 19:00 | PN ---
Progress Note, Physician History of Present Illness: No further near or true syncope. No events on telemetry. - Current Medication List Current Medications: Active Medications Acetaminophen (Ofirmev Injection -) 1,000 mg IVPB Q8H PRN PRN Reason: FEVER Last Admin: 01/01/18 16:06 Dose: 1,000 mg Amlodipine Besylate (Norvasc -) 5 mg PO DAILY [facility] Last Admin: 01/05/18 09:39 Dose: 5 mg Aspirin (Asa -) 81 mg PO DAILY [facility] Last Admin: 01/05/18 09:38 Dose: 81 mg Clopidogrel Bisulfate (Plavix -) 75 mg PO DAILY [facility] Last Admin: 01/05/18 09:39 Dose: 75 mg Furosemide (Lasix -) 20 mg PO BIDLASIX [facility] Last Admin: 01/05/18 14:38 Dose: 20 mg Heparin Sodium (Porcine) (Heparin -) 5,000 unit SQ TID [facility] Last Admin: 01/05/18 14:38 Dose: 5,000 unit IV Flush (Picc Line Flush) 8 ml IVPUSH PRN PRN PRN Reason: Protocol Piperacillin/Tazobactam/Dextrose (Zosyn 2.25gm Ivpb (Premix)) 2.25 gm in 50 mls @ 100 mls/hr IVPB Q8H-IV RACQUEL PRN Reason: Protocol Last Admin: 01/05/18 17:42 Dose: 100 mls/hr Insulin Aspart (Novolog Vial Sliding Scale -) 0 vial SQ ACHS RACQUEL PRN Reason: Protocol Last Admin: 01/05/18 17:41 Dose: 2 units Losartan Potassium (Cozaar -) 100 mg PO DAILY [facility] Last Admin: 01/05/18 09:39 Dose: 100 mg Metoprolol Tartrate (Lopressor -) 50 mg PO DAILY [facility] Last Admin: 01/05/18 09:38 Dose: 50 mg Oseltamivir Phosphate (Tamiflu -) 30 mg PO BID [facility] Stop: 01/06/18 09:59 Last Admin: 01/05/18 09:38 Dose: 30 mg Rosuvastatin Calcium (Crestor -) 2.5 mg PO DAILY [facility] Last Admin: 01/05/18 09:39 Dose: 2.5 mg - Objective Vital Signs: Vital Signs Temperature 98.6 F 01/05/18 13:43 Pulse Rate 82 01/05/18 13:43 Respiratory Rate 16 01/05/18 13:43 Blood Pressure 114/58 01/05/18 13:43 O2 Sat by Pulse Oximetry (%) 100 01/05/18 09:00 Constitutional: Yes: No Distress, Calm Neck: Yes: Supple Cardiovascular: Yes: Regular Rate and Rhythm Respiratory: Yes: Regular, Diminished Gastrointestinal: Yes: Normal Bowel Sounds, Soft Edema: No Labs: CBC, BMP 01/05/18 06:45 01/05/18 06:45 INR, PTT INR 1.08 (0.82-1.09) 12/31/17 22:43 Problem List - Problems (1) S/P TAVR (transcatheter aortic valve replacement) Code(s): Z95.2 - PRESENCE OF PROSTHETIC HEART VALVE (2) Syncope Code(s): R55 - SYNCOPE AND COLLAPSE Qualifiers: Syncope type: vasovagal syncope Qualified Code(s): R55 - Syncope and collapse (3) Aortic stenosis Code(s): I35.0 - NONRHEUMATIC AORTIC (VALVE) STENOSIS Qualifiers: Cardiac valve disease etiology: nonrheumatic Qualified Code(s): I35.0 - Nonrheumatic aortic (valve) stenosis (4) CAD (coronary artery disease) Code(s): I25.10 - ATHSCL HEART DISEASE OF [place] CORONARY ARTERY W/O ANG PCTRS Qualifiers: Coronary Disease-Associated Artery/Lesion type: [place] artery [place] vs. transplanted heart: [place] heart Associated angina: without angina Qualified Code(s): I25.10 - Atherosclerotic heart disease of [place] coronary artery without angina pectoris (5) CKD (chronic kidney disease) Code(s): N18.9 - CHRONIC KIDNEY DISEASE, UNSPECIFIED Qualifiers: Chronic kidney disease stage: stage 2 (mild) Qualified Code(s): N18.2 - Chronic kidney disease, stage 2 (mild) (6) Carotid artery disease Code(s): I77.9 - DISORDER OF ARTERIES AND ARTERIOLES, UNSPECIFIED (7) Diabetes mellitus Code(s): E11.9 - TYPE 2 DIABETES MELLITUS WITHOUT COMPLICATIONS Qualifiers: Diabetes mellitus type: type 2 Diabetes mellitus complication status: without complication (8) HTN (hypertension) Code(s): I10 - ESSENTIAL (PRIMARY) HYPERTENSION Qualifiers: Hypertension type: essential hypertension Qualified Code(s): I10 - Essential (primary) hypertension (9) History of percutaneous coronary intervention Code(s): Z98.89 - OTHER SPECIFIED POSTPROCEDURAL STATES * DO NOT USE * (10) Hx of CABG Code(s): Z95.1 - PRESENCE OF AORTOCORONARY BYPASS GRAFT (11) Hypercholesterolemia Code(s): E78.0 - PURE HYPERCHOLESTEROLEMIA * DO NOT USE * Assessment/Plan Transthoracic echocardiography revealed normal left ventricular systolic function, TAVR well seated with normal function, impaired relaxation with elevated filling pressure and mild TR 1. Possible near syncope - vasovagal 2. Possible Influenza +/- pneumonia + strep bacteremia 3. Post TAVR for aortic valve stenosis 4. CAD s/p CABG, PCI/stent, angina pectoris 5. Hypertension/hypertensive cardiovascular disease 6. Hypercholesterolemia 7. Diabetes mellitus and diabetic neuropathy 8. History of vocal cord malignancy PLAN: 1. Continue telemetry monitoring 2. Continue Metoprolol 50 qd, Losartan 100 qd and Amlodipine 5 qd 3. Continue ASA 81 qd and Plavix 75 qd 4. Continue Furosemide 20 bid 5. Continue Crestor 2.5 qd 6. Empiric antibiotic coverage and Tamiflu, f/u C&S 7. DVT prophylaxis
[2018-01-06] MEDS: PIPERACILLIN/TAZOB 2.25 GM 2.25 GM/50 ML BAG IVPB SCH ×2 (01:15→09:50)
[2018-01-06] MEDS: INSULIN SLIDING SCALE (NOVOLOG) 1 VIAL SQ SCH ×3 (06:14→16:49)
[2018-01-06] MEDS: HEPARIN NA (PORCINE) 5,000 UNITS/ML 1ML VIAL SQ SCH ×2 (06:16→15:00)
[2018-01-06] MEDS: FUROSEMIDE 20 MG TABLET (FP) PO SCH ×2 (06:17→15:00)
--- NOTE | 2018-01-06 08:28 | PN ---
Teaching Attending Note Name of Resident: Westley Monahan ATTENDING PHYSICIAN STATEMENT I saw and evaluated the patient. I reviewed the resident's note and discussed the case with the resident. I agree with the resident's findings and plan as documented. SUBJECTIVE: no fever or chills, hasno SOB. did not sleep last night due to noisy environment . NO cough or CP . OBJECTIVE: NAD, AAOx3 CV: RRR, 2/6 SM at base. Lungs: minimal fine crackles at R base. Ext: no edema. ASSESSMENT AND PLAN: 87 y/o man with h/o HTN, [place], AVR, HLP, carotid stenosis , CKD , DM , vocal cord cancer, and anemia . who presented with a fall and was found to have PNA with strep pneumo pneumonia 1- Strep Pneumo bacteremia with PNA :sepsis on admission resolved. repeat blood cx neg to date . no evidence of endocarditis - continue zosyn for total of 14 days , today day 4 -last day of tamiflu today 2- possible pseudomonas UTI: cont zosyn 3- h/o [place] cont ASA , plavix ,and BB 4- HTN: cont cont lasix , norvasc . metoprolol and losartan 5- CKD : stable cr at base line 6- DM : SSI here . resume oral agents at dc DC to rehab today with PICC line. ( if bed is available )
[2018-01-06] MEDS ORDERED: PT OWN MED DRAWER 7, Y5N ONE ×2 (09:09→09:47)
--- NOTE | 2018-01-06 09:22 | PN ---
Progress Note, Physician Chief Complaint: Not in distress History of Present Illness: Patient was seen and examined. Awake and alert. Chart was reviewed Denies chest pain, SOB or palpitations - Current Medication List Current Medications: Active Medications Acetaminophen (Ofirmev Injection -) 1,000 mg IVPB Q8H PRN PRN Reason: FEVER Last Admin: 01/01/18 16:06 Dose: 1,000 mg Amlodipine Besylate (Norvasc -) 5 mg PO DAILY [facility] Last Admin: 01/05/18 09:39 Dose: 5 mg Aspirin (Asa -) 81 mg PO DAILY [facility] Last Admin: 01/05/18 09:38 Dose: 81 mg Clopidogrel Bisulfate (Plavix -) 75 mg PO DAILY [facility] Last Admin: 01/05/18 09:39 Dose: 75 mg Furosemide (Lasix -) 20 mg PO BIDLASIX [facility] Last Admin: 01/06/18 06:17 Dose: 20 mg Heparin Sodium (Porcine) (Heparin -) 5,000 unit SQ TID [facility] Last Admin: 01/06/18 06:16 Dose: 5,000 unit IV Flush (Picc Line Flush) 8 ml IVPUSH PRN PRN PRN Reason: Protocol Piperacillin/Tazobactam/Dextrose (Zosyn 2.25gm Ivpb (Premix)) 2.25 gm in 50 mls @ 100 mls/hr IVPB Q8H-IV RACQUEL PRN Reason: Protocol Last Admin: 01/06/18 01:15 Dose: 100 mls/hr Insulin Aspart (Novolog Vial Sliding Scale -) 0 vial SQ ACHS RACQUEL PRN Reason: Protocol Last Admin: 01/06/18 06:14 Dose: Not Given Losartan Potassium (Cozaar -) 100 mg PO DAILY [facility] Last Admin: 01/05/18 09:39 Dose: 100 mg Metoprolol Tartrate (Lopressor -) 50 mg PO DAILY [facility] Last Admin: 01/05/18 09:38 Dose: 50 mg Oseltamivir Phosphate (Tamiflu -) 30 mg PO BID [facility] Stop: 01/06/18 09:59 Last Admin: 01/05/18 21:43 Dose: 30 mg Rosuvastatin Calcium (Crestor -) 2.5 mg PO DAILY [facility] Last Admin: 01/05/18 09:39 Dose: 2.5 mg - Objective Vital Signs: Vital Signs Temperature 98.9 F 01/06/18 06:00 Pulse Rate 81 01/06/18 06:00 Respiratory Rate 18 01/06/18 06:00 Blood Pressure 163/71 01/06/18 06:00 O2 Sat by Pulse Oximetry (%) 95 01/05/18 21:00 Constitutional: Yes: Well Nourished Eyes: Yes: PERRL HENT: Yes: Atraumatic Neck: Yes: Supple Cardiovascular: Yes: Regular Rate and Rhythm, S1, S2 Respiratory: Yes: Diminished Gastrointestinal: Yes: Normal Bowel Sounds, Soft. No: Tenderness Edema: No Additional Findings/Remarks: - Review of Systems Constitutional: denies: Fever. denies: Chills Cardiovascular: denies: Chest Pain, Palpitations, Shortness of Breath Respiratory: denies: Cough, Hemoptysis, Orthopnea, PND, SOB, SOB on Exertion Genitourinary: denies: Dysuria, Hematuria Neurological: reports: Dizziness, Syncope. denies: Confusion, Headache, Seizure , Unsteady Gait, Weakness Problem List - Problems (1) S/P TAVR (transcatheter aortic valve replacement) Code(s): Z95.2 - PRESENCE OF PROSTHETIC HEART VALVE (2) Syncope Code(s): R55 - SYNCOPE AND COLLAPSE Qualifiers: Syncope type: vasovagal syncope Qualified Code(s): R55 - Syncope and collapse (3) Aortic stenosis Code(s): I35.0 - NONRHEUMATIC AORTIC (VALVE) STENOSIS Qualifiers: Cardiac valve disease etiology: nonrheumatic Qualified Code(s): I35.0 - Nonrheumatic aortic (valve) stenosis (4) CAD (coronary artery disease) Code(s): I25.10 - ATHSCL HEART DISEASE OF [place] CORONARY ARTERY W/O ANG PCTRS Qualifiers: Coronary Disease-Associated Artery/Lesion type: [place] artery [place] vs. transplanted heart: [place] heart Associated angina: without angina Qualified Code(s): I25.10 - Atherosclerotic heart disease of [place] coronary artery without angina pectoris (5) CKD (chronic kidney disease) Code(s): N18.9 - CHRONIC KIDNEY DISEASE, UNSPECIFIED Qualifiers: Chronic kidney disease stage: stage 2 (mild) Qualified Code(s): N18.2 - Chronic kidney disease, stage 2 (mild) (6) Carotid artery disease Code(s): I77.9 - DISORDER OF ARTERIES AND ARTERIOLES, UNSPECIFIED (7) Diabetes mellitus Code(s): E11.9 - TYPE 2 DIABETES MELLITUS WITHOUT COMPLICATIONS Qualifiers: Diabetes mellitus type: type 2 Diabetes mellitus complication status: without complication (8) HTN (hypertension) Code(s): I10 - ESSENTIAL (PRIMARY) HYPERTENSION Qualifiers: Hypertension type: essential hypertension Qualified Code(s): I10 - Essential (primary) hypertension (9) History of percutaneous coronary intervention Code(s): Z98.89 - OTHER SPECIFIED POSTPROCEDURAL STATES * DO NOT USE * (10) Hx of CABG Code(s): Z95.1 - PRESENCE OF AORTOCORONARY BYPASS GRAFT (11) Hypercholesterolemia Code(s): E78.0 - PURE HYPERCHOLESTEROLEMIA * DO NOT USE * Assessment/Plan 1. Possible near syncope - vasovagal 2. Possible Influenza +/- pneumonia + strep bacteremia 3. Post TAVR for aortic valve stenosis 4. CAD s/p CABG, PCI/stent, angina pectoris 5. Hypertension/hypertensive cardiovascular disease 6. Hypercholesterolemia 7. Diabetes mellitus and diabetic neuropathy 8. History of vocal cord malignancy PLAN: 1. Continue present therapy 2. Continue Metoprolol, Losartan and Amlodipine 3. Continue ASA and Plavix 4. Continue Furosemide 5. Continue Crestor 6. Empiric antibiotic coverage 7. SNF Further plans are to follow Gallo Epps MD
[2018-01-06] MEDS: amLODIPine BESYLATE 5 MG TABLET (FP) PO SCH (09:50)
[2018-01-06] MEDS: CLOPIDOGREL BISULFATE 75 MG TABLET (FP) PO SCH (09:50)
[2018-01-06] MEDS: METOPROLOL TARTRATE 50 MG TABLET (FP) PO SCH (09:50)
[2018-01-06] MEDS: ASPIRIN 81 MG CHEWABLE TABLETS PO SCH (09:50)
[2018-01-06] MEDS: LOSARTAN POTASSIUM 50 MG TABLET (FP) PO SCH (09:50)
[2018-01-06] MEDS: ROSUVASTATIN CA 5 MG TABLET (FP) PO SCH (09:51)
--- NOTE | 2018-01-06 10:48 | PN ---
Progress Note, Physician History of Present Illness: doing well afebrile stable no complaints - Current Medication List Current Medications: Active Medications Acetaminophen (Ofirmev Injection -) 1,000 mg IVPB Q8H PRN PRN Reason: FEVER Last Admin: 01/01/18 16:06 Dose: 1,000 mg Amlodipine Besylate (Norvasc -) 5 mg PO DAILY [facility] Last Admin: 01/06/18 09:50 Dose: 5 mg Aspirin (Asa -) 81 mg PO DAILY [facility] Last Admin: 01/06/18 09:50 Dose: 81 mg Clopidogrel Bisulfate (Plavix -) 75 mg PO DAILY [facility] Last Admin: 01/06/18 09:50 Dose: 75 mg Furosemide (Lasix -) 20 mg PO BIDLASIX [facility] Last Admin: 01/06/18 06:17 Dose: 20 mg Heparin Sodium (Porcine) (Heparin -) 5,000 unit SQ TID [facility] Last Admin: 01/06/18 06:16 Dose: 5,000 unit IV Flush (Picc Line Flush) 8 ml IVPUSH PRN PRN PRN Reason: Protocol Piperacillin/Tazobactam/Dextrose (Zosyn 2.25gm Ivpb (Premix)) 2.25 gm in 50 mls @ 100 mls/hr IVPB Q8H-IV RACQUEL PRN Reason: Protocol Last Admin: 01/06/18 09:50 Dose: 100 mls/hr Insulin Aspart (Novolog Vial Sliding Scale -) 0 vial SQ ACHS RACQUEL PRN Reason: Protocol Last Admin: 01/06/18 06:14 Dose: Not Given Losartan Potassium (Cozaar -) 100 mg PO DAILY [facility] Last Admin: 01/06/18 09:50 Dose: 100 mg Metoprolol Tartrate (Lopressor -) 50 mg PO DAILY [facility] Last Admin: 01/06/18 09:50 Dose: 50 mg Rosuvastatin Calcium (Crestor -) 2.5 mg PO DAILY [facility] Last Admin: 01/06/18 09:51 Dose: 2.5 mg - Objective Vital Signs: Vital Signs Temperature 98.9 F 01/06/18 06:00 Pulse Rate 81 01/06/18 06:00 Respiratory Rate 18 01/06/18 06:00 Blood Pressure 163/71 01/06/18 06:00 O2 Sat by Pulse Oximetry (%) 95 01/05/18 21:00 Constitutional: Yes: No Distress, Calm Neck: Yes: Supple, Trachea Midline Cardiovascular: Yes: Regular Rate and Rhythm Respiratory: Yes: Regular, CTA Bilaterally Gastrointestinal: Yes: Normal Bowel Sounds, Soft Musculoskeletal: Yes: WNL Extremities: Yes: WNL Neurological: Yes: Alert, Oriented Psychiatric: Yes: Alert, Oriented Labs: CBC, BMP 01/05/18 06:45 01/05/18 06:45 INR, PTT INR 1.08 (0.82-1.09) 12/31/17 22:43 Assessment/Plan Problem List - Problems (1) H/O aortic valve replacement Code(s): Z95.2 - PRESENCE OF PROSTHETIC HEART VALVE (2) Aortic stenosis Code(s): I35.0 - NONRHEUMATIC AORTIC (VALVE) STENOSIS Qualifiers: Cardiac valve disease etiology: etiology unspecified Qualified Code(s): I35.0 - Nonrheumatic aortic (valve) stenosis (3) CAD (coronary artery disease) Code(s): I25.10 - ATHSCL HEART DISEASE OF [place] CORONARY ARTERY W/O ANG PCTRS Qualifiers: Coronary Disease-Associated Artery/Lesion type: [place] artery [place] vs. transplanted heart: [place] heart Associated angina: without angina Qualified Code(s): I25.10 - Atherosclerotic heart disease of [place] coronary artery without angina pectoris (4) CKD (chronic kidney disease) Code(s): N18.9 - CHRONIC KIDNEY DISEASE, UNSPECIFIED Qualifiers: Chronic kidney disease stage: stage 2 (mild) Qualified Code(s): N18.2 - Chronic kidney disease, stage 2 (mild) (5) HTN (hypertension) Code(s): I10 - ESSENTIAL (PRIMARY) HYPERTENSION Qualifiers: Hypertension type: essential hypertension (6) Hx of CABG Code(s): Z95.1 - PRESENCE OF AORTOCORONARY BYPASS GRAFT uti Assessment/Plan 87 y.o. male with PMH of CAD s/p CABG, PCI s/p stent, aortic valve replacement, CKD, HTN presenting with fever/chills and cough, episode of dizziness without LOC patient admitted with uti and gm positive bacteremia and invasive pneumococcal pneumonia patient has recent valve placement plan continue zosyn close watch for fevers finish abx course if patient spikes fever on the abx work up again rest as per primary team
--- NOTE | 2018-01-06 11:09 | DS ---
Physical Exam: SUBJECTIVE: Patient seen and examined at bedside. Denies any chest pain, SOB, fevers, chills. OBJECTIVE: Vital Signs Period Temp Pulse Resp BP Sys/Dobson Pulse Ox Last 24 Hr 98.1 F-98.9 F 54-87 16-18 114-163/53-85 95-95 PHYSICAL EXAM GENERAL: Awake, alert, and fully oriented, in no acute distress. LUNGS: Breath sounds equal, clear to auscultation bilaterally. improved compared to yesterday, improved airflow bilaterally HEART: Regular rate and rhythm, normal S1 and S2, stable 3/6 systolic murmur recognized on exam, rub or gallop. ABDOMEN: Soft, nontender, not distended, normoactive bowel sounds, no guarding, no rebound, no masses. No hepatomegaly or splenomegaly. MUSCULOSKELETAL: Normal range of motion at all joints. No bony deformities or tenderness. No CVA tenderness. UPPER EXTREMITIES: 2+ pulses, warm, well-perfused. No cyanosis. No clubbing. No peripheral edema. LOWER EXTREMITIES: 2+ pulses, warm, well-perfused. No calf tenderness. No peripheral edema. Has chronic discoloration of b/l lower extremities NEUROLOGICAL: Cranial nerves II-XII intact. Normal speech. Normal gait. PSYCHIATRIC: Cooperative. Good eye contact. Appropriate mood and affect. SKIN: Warm, dry, normal turgor, no rashes or lesions noted, normal capillary refill. LABS Laboratory Results - last 24 hr 01/05/18 01/05/18 01/05/18 05:49 11:36 17:00 POC Glucometer 130.68897 [id number] 01/05/18 01/06/18 21:48 06:13 POC Glucometer 176.46087 [phone] Microbiology 01/02/18 08:35 Blood - Peripheral Venous Blood Culture - Preliminary NO GROWTH OBTAINED AFTER 96 HOURS, INCUBATION TO CONTINUE FOR 1 DAYS. 01/02/18 05:55 Blood - Peripheral Venous Blood Culture - Preliminary NO GROWTH OBTAINED AFTER 96 HOURS, INCUBATION TO CONTINUE FOR 1 DAYS. 01/01/18 16:20 Nasopharyngeal Swab Influenza Types A,B Antigen (JOHN) - Preliminary 01/01/18 16:20 Nasopharyngeal Swab - Preliminary 12/31/17 23:00 Blood - Peripheral Venous Blood Culture - Final Streptococcus Pneumoniae 12/31/17 23:00 Blood - Peripheral Venous Blood Culture - Final Streptococcus Pneumoniae 12/31/17 22:43 Urine - Urine Clean Catch Urine Culture - Final Pseudomonas Aeruginosa 01/01/18 10:17 Urine - Urine Clean Catch Legionella Antigen - Final 01/01/18 10:17 Urine - Urine Clean Catch Streptococcus pneumoniae Antigen ( M - Final IMAGING: Carotid Doppler 01/01: No Doppler evidence of a high-grade internal carotid artery stenosis. Head CT 01/01: No definite interval change is seen in comparison to a previous CT study of 03/17/2013. Incidental note is made of mild to moderate right maxillary sinus mucosal thickening consistent with sinusitis is probably chronic versus subacute. Correlate clinically. The prior cranial CT study did not fully include the right maxillary sinus at that time. CXR: 12/31: Since the prior study of 03/02/2016, there is elevated right hemidiaphragm with large heart, sclerotic knob, sternal sutures and clips and no sign of infiltrate or failure. Since the prior study, the congestive changes have cleared. ECHOCARDIOGRAM: LV normal function, no wall abnormalities, EF > 70%, impaired relaxation w/ elevated filling pressure, moderate mitral annular calcification, bioprosthesis seen in aortic position (well-seated, opens well), no aortic regurgitation, no effusion HOSPITAL COURSE: Date of Admission:01/01/18 87 year old male with a history of AV replacement 1.5 years ago, AR, HTN, HLD, carotid stenosis, CKD, DM, vocal chord malignancy, anemia, presented to the ED for fevers, chills, body aches, and a fall. In the ED, patient was found to have a mild leukocytosis, low-grade fever, and a creatinine of 1.7 (his baseline ). Blood cultures, UA, and CXR were performed. Similarly, due to patient's fall and concern for syncopal episode, patient had a carotid doppler (negative) and a head CT that did not reveal an acute changes. Echo was done and results are listed above. Patient was started on ceftriaxone and zithromax and started on tamiflu. The following day, Blood cx grew gram + cocci, ID saw the patient and continued abx + added a dose of vancomycin. Blood cultures were repeated. Patient was monitored for several days until sensitivities returned on the blood cultures - it returned strep pneumoniae. The urine also grew pseudomonas aeruginosa. On 01/04, patient was changed from ceftriaxone to zosyn for bacteremia that would cover both strep pneumo in the blood and the pseudomonas in the urine. Patient was clinically well during the course of his treatment, reporting no fevers, chills, chest pain, or SOB. Because patient has a prosthetic valve and bacteremia, the decision was made to extend treatment with IV zosyn for 14 total days. Patient received a picc line and was discharged on to [facility] with instructions to complete 11 more days of zosyn and to follow with his PCP. Date of Discharge: 01/06/18 Minutes to complete discharge: 35 Discharge Summary Reason For Visit: SYNCOPE Current Active Problems Bacteremia due to Gram-positive bacteria (Acute) Pneumonia (Acute) Urinary tract infection (Acute) H/O aortic valve replacement (Chronic) Condition: Improved - Instructions Diet, Activity, Other Instructions: You were admitted to the hospital for the treatment of pneumonia and a bloodstream infection. You were treated with antibiotics for pneumonia and the flu while in the hospital Additionally, we found that you have bacteria in your urine You will need to be on 11 more days of intravenous antibiotics at home You will get a PICC line in order to complete 11 more days of antibiotics at the rehab facility Medical Recommendations: -Please take Zosyn intravenously - 2.25g, every 8 hours , for 11 days, you will get it at [facility] - PICC line needs to be removed after you finish your antibiotics -Continue the rest of your home medications as before Referrals: -Please see your primary care physician within 1 week of discharge ( Dr. Boyce ) also follow with Dr. Davis , from cardiology after discharge Referrals: Karmen Gates MD [Primary Care Provider] - Nelson Boyce MD [Staff Physician] - 1 Week Disposition: HALFWAY FACILITY - Home Medications Comprehensive Discharge Medication List: Ambulatory Orders Amlodipine Besylate 5 mg PO DAILY 12/31/17 Aspirin [ASA -] 81 mg PO DAILY 12/31/17 Clopidogrel Bisulfate [Clopidogrel] 75 mg PO DAILY 12/31/17 Furosemide 20 mg PO BID 12/31/17 Glimepiride 1 mg PO BID 12/31/17 Linagliptin [Tradjenta] 5 mg PO DAILY 12/31/17 Losartan Potassium 100 mg PO DAILY 12/31/17 Metoprolol Tartrate 50 mg PO DAILY 12/31/17 [place]-3 Fatty Acids [[place]-3] 1,000 mg PO DAILY 12/31/17 Rosuvastatin Calcium [Crestor] 2.5 mg PO DAILY 12/31/17 Piperacillin/Tazob 2.25 gm [Zosyn] 2.25 gm IV Q8H #33 vial 01/05/18 This patient is new to me today: No Emergency Visit: No Critical Care patient: No - Discharge Referral Referred to [facility] No
[2018-01-06 13:29] VITALS: BP 123/55; PULSE 88; TEMP 98.9
== END 2018-01-06 17:20 | DRG 871 ==
LOC: JER 21:19 → JERBED 01-01 03:21 → OBSVTOIN 01-01 05:08 → J2W 01-01 13:16
PROVIDERS: ADMIT Internal Medicine; ATTEND Internal Medicine
PROC: 02HV33Z Insertion of Infusion Device into Superior Vena Cava, Percutaneous Approach (ICD-10-PCS; principal; 2018-01-06)
DX: A41.89 Other specified sepsis (principal); J10.08 Influenza due to other identified influenza virus with other specified pneumonia; J13 Pneumonia due to Streptococcus pneumoniae; I25.110 Atherosclerotic heart disease of native coronary artery with unstable angina pectoris; I13.0 Hypertensive heart and chronic kidney disease with heart failure and stage 1 through stage 4 chronic kidney disease, or unspecified chronic kidney disease; N39.0 Urinary tract infection, site not specified; B96.5 Pseudomonas (aeruginosa) (mallei) (pseudomallei) as the cause of diseases classified elsewhere; N18.2 Chronic kidney disease, stage 2 (mild); I25.2 Old myocardial infarction; I65.29 Occlusion and stenosis of unspecified carotid artery; M19.90 Unspecified osteoarthritis, unspecified site; E11.42 Type 2 diabetes mellitus with diabetic polyneuropathy; E78.00 Pure hypercholesterolemia, unspecified; I45.19 Other right bundle-branch block; D64.9 Anemia, unspecified; M54.5 Low back pain; R01.1 Cardiac murmur, unspecified; R55 Syncope and collapse; Z95.5 Presence of coronary angioplasty implant and graft; E11.22 Type 2 diabetes mellitus with diabetic chronic kidney disease; Z95.2 Presence of prosthetic heart valve; Z95.1 Presence of aortocoronary bypass graft; Z85.21 Personal history of malignant neoplasm of larynx
CPT/HCPCS: 36415; 36569; 70450-TC; 71045-TC-FY; 77001-TC-FY; 80048; 80053; 80061; 81003; 81015; 82550; 82553; 82962; 83605; 83721; 83735; 83880; 84100; 84484; 85025; 85027; 85610; 85730; 87040; 87086; 87186; 87804; 87899; 93005; 93010; 93306-TC; 93880-TC; 97116-GP; 97161-GP; 99285-25; C1751; G0378; J1644